=== PATIENT | female | born 1945 | race Caucasian/White ===

== ENCOUNTER 2023-03-15 10:04 | Inpatient (IN) | payer OTHER ==
--- OUTSIDE RECORDS SUMMARY | 2023-03-15 10:27 | XMS REPORT | Continuity of Care Document ---
:1945 Author Organization [facility] t Address [address] [facility] Efra[address]. [address] [place] [address] Care Team Providers Name Role Phone ZEESHAN NICHOLSON Primary Care Physician UnavailWILL Garner Attending Clinician Unavailable WILL DOSHI Attending Clinician Unavailable Will Doshi MD Attending Clinician Lab, Ang - Db Attending Clinician Unavailable SARA SANCHEZ Attending Clinician Unavailable Brent Ayon Attending Clinician Viky York Attending Clinician Marni Frazier Attending Clinician Peter Mayer Attending Clinician Raegan Lawler Attending Clinician Eze Calvert Admitting Clinician Marni Frazier Admitting Clinician Payers Payer Name Policy Type Policy Number Effective Date Expiration Date Immanuel suarez MEDICARE PART A [id number] 2011 \T\ B 00:00:00 MED[place]ID OF [place] [id number] 2022 00:00:00 Problems Condition Condition Condition Status Onset Resolution Last Treating Co mments Source Name Details Category Date Date Treatment Clinician Date SNAKE BITE SNAKE Diagnosis Active 2017-08-02 Memoria BITE 07-31 17:48:00 l Active 00:00: Malachi 07/31/2017 00 [facility] LLOYD LLOYD Diagnosis Active 2017-07-31 Memoria BILLING BILLING 07-31 06:45:00 l ONLY/LFLT# ONLY/LFLT# 00:00: Linden haskins [id number] Active 07/31/2017 [facility] TIA TIA Diagnosis Active 2017-06-22 Mem oria Active 06-21 10:00:00 l 06/21/2017 00:00: Sravan WHATLEY [address] [facility] TIA KE TIA KE Diagnosis Active 2017-06-22 M emoria Active 06-21 06:26:00 l 06/21/2017 00:00: Sravan [place] [facility] STROKE STROKE Diagnosis Active 2017-06-22 Me moria Active 06-21 04:25:00 l 06/21/2017 00:00: Sravan WHATLEY 00 [facility] MAYBE MAYBE Diagnosis Active 2017-06-21 Mem oria STROKE STROKE 06-21 23:10:00 l Active 00:00: Malachi 06/21/[address] [place] [address] Malachi E04.2 - E04.2 - Diagnosis Active 2016-01-23 Memoria NONTOXIC NONTOXIC 3-10 12:29:00 l MULTINODUL MULTINODUL 00:01: Linden MYLES GOYOGESH 00 Active 01/16/2016 OPID Leticia No known No known Disease Unive rs active active ity of problems problems [facility] Hypertensi Hypertens Problem Resolve 2019-01-02 Memoria ve melody d 15:33:01 l disorder, disorder, Herm lena systemic systemic arterial arterial (disorder) (disorder) Resolved Problem 01/02/2019 Medical Group,[facility], Leticia,M [place] TOXIC TOXIC Diagnosis Active 2017-08-02 Mem oria EFFECT OF EFFECT OF 17:48:00 l UNSP SNAKE UNSP SNAKE He rmann VENOM, VENOM, ACCIDE ACCIDE Active [facility] Allergies, Adverse Reactions, Alerts Allergy Allergy Status Severity Reaction(s) Onset Inactive Treating Comm ents Source Name Type Date Date Clinician NO KNOWN Drug Active Univers ALLERGIE Class ity of S [facility] Family History Family Member Diagnosis Comments Start Date Stop Date Source Natural brother Stroke [facility] Social History Social Habit Start Date Stop Date Quantity Comments Source Gender identity [facility] Exposure to 2022-03-06 2022-03-16 Not sure University of SARS-CoV-2 (event) 00:00:00 09:43:00 [facility] Tobacco use and 2022-03-16 2022-03-16 Never used Universit y of exposure 00:00:00 00:00:00 [facility] Alcohol intake 2021-03-01 2021-03-01 [facility] 00:00:00 00:00:00 non-drinker Hospital (finding) History of Social 2021-03-01 2021-03-[address] function 00:00:00 00:00:00 [facility] Social History 2017-07-31 2017-07-31 [facility] 20:53:13 20:53:13 Sex [birth year] [facility] 00:00:00 00:00:00 [facility] Smoking Status Start Date Stop Date Source [facility] Medications Ordered Filled Start Stop Current Ordering Indication Dosage Frequency Signature Comments Components Source Medication Medication Date Date Medication? Clinician (SIG) Name Name lisinopriL Yes 20mg Take 20 mg U nivers 20 mg -09 by mouth ity of tablet 10:11: daily. [address] Levothyroxi Yes Take by Uni vers ne 100 mcg 5-09 mouth. ity of capsule 10:11: [address] lisinopriL Yes 20mg Take 20 mg U nivers 20 mg 5-09 by mouth ity of tablet 10:11: daily. [address] Levothyroxi Yes Take by Uni vers ne 100 mcg 5-09 mouth. ity of capsule 10:11: [address] Cholestyram Yes = 1 Pack, M emoria ine Resin 7-25 PO, BID, # l 66.7 MG/ML 21:39: 60 ea, 6 Her gold Oral 00 Refill(s), Suspension Pharmacy: [[facility]] [facility] [address] budesonide No 9 mg = 3 Mem oria 3 mg oral 7-17 cap, PO, l delayed 15:51: QAM, X 30 Marcela nn release 00 day, # 90 capsule cap, 0 Refill(s), Pharmacy: [facility] [address]855 tramadol Yes See Memoria hydrochlori 08-01 Instructio l de 50 MG 16:20: ns, PRN Sravan n Oral Tablet 00 Pain Score 6-10, 1 tab PO Q4H or 2 tabs PO Q6, # 30 tab, 0 Refill(s) Lisinopril No Notes: Memor ia 08-01 (Same as: l 14:00: Prinivil, Malachi 00 Zestril) aspirin 81 No Notes: Do Me moria mg tablet, 08-01 not crush l enteric 14:00: or chew. Sravan n coated 00 (Same As: Ecotrin) Thyroxine No Notes: Memori a 08-01 Take 1 l 02:00: hour [place] 00 before or 2 hours after meal; Enteral feeds may interefere with the absorption of this medication . (Same as:Levothr oid, Synthroid) Amlodipine No Notes: Memor ia 07-31 (Same as: l 22:56: Norvasc) Malachi 00 lisinopril Yes 20 mg = 1 Me moria 20 mg oral 07-31 tab, PO, l tablet 19:27: Daily, 0 [place] 00 Refill(s) Amlodipine Yes 5 mg, PO, Me moria 07-31 Daily, 0 l 19:27: Refill(s) Acetaminoph No Notes: Do M emoria en 07-31 not exceed l 19:26: 4 gm/day. (Same as: Tylenol) Ondansetron No Notes: Carrillo ana luisa 07-31 (Same as: l 19:26: Zofran) MEDICATION WASTE Product Size: 4 mg Product Wasted: ___ mg Tramadol No Notes: Not Mem oria 07-31 to exceed l 19:25: 400mg/day. (Same As: Ultram) Acetaminoph No 1 tab, Carrillo ana luisa en 325 MG / 07-31 Route: PO, l Hydrocodone 18:40: Drug Form: [place] Bitartrate 00 TAB, 10 MG Oral Dosing Tablet Weight [[place] 70.455, 10/325] kg, ONCE, STAT, Start date: 07/31/17 13:40:00 CDT, Stop date: 07/31/17 13:40:00 CDT Fentanyl No 50 Memoria 07-31 microgram, l 15:00: Route: IVP, ONCE, Dosing Weight 70.455, kg, Priority: STAT, Start date: 07/31/17 10:00:00 CDT, Stop date: 07/31/17 10:00:00 CDT sodium No 1,000 mL, Memori a chloride 07-31 Rate: 75 l 0.9% 1000 14:47: ml/hr, Sravan n ml INJ 00 Infuse 1,000 mL over: 13.3 hr, Route: IV, Dosing Weight 70.455 kg, Total Volume: 1,000, Priority: STAT, Start date: 07/31/17 9:47:00 CDT, Duration: 1 doses or times, Stop date: 07/31/17 23:04:00 CDT Saline No Notes: Memoria Flush 0.9% 9-23 (Same as: l 13:25: BD Posiflush) DME Yes 1 ea, Memoria Addition #1 8-16 MISC, l 11:54: Q-M-W-F, [place] 00 Speech Therapy - Cognitive Therapy, 3 X/week for 4 weeks, # 1 ea, 0 Refill(s) aspirin 81 Yes 81 mg = 1 Me moria mg tablet, 8-16 tab, PO, l enteric 11:49: Daily, # Sravan n coated 00 90 tab, 3 Refill(s), Pharmacy: [facility] [id number] atorvastati No Notes: Carrillo ana luisa n 8-16 (Same As: l 02:00: Lipitor) [place] Tylenol No Notes: Do Memor ia 8-15 not exceed l 18:53: 4 gm/day. Malachi 00 (Same as: Tylenol) Thyroxine No Notes: Memori a 8-15 Take 1 l 16:08: hour [place] 00 before or 2 hours after meal; Enteral feeds may interefere with the absorption of this medication . (Same as:Levothr oid, Synthroid) Docusate No Notes: Memoria 8-15 (Same as: l 14:00: Colace) Malachi 00 (Do Not Crush) Aspirin 325 No Notes: (Do Memoria MG Enteric 8-15 Not Crush) l Coated 14:00: Do not Malachi Tablet 00 crush or chew. Streptococc No Notes: Carrillo ana luisa us 8-15 Shake well l pneumoniae 14:00: prior to Her gold serotype 1 00 use (Same capsular as: antigen Prevnar diphtheria 13) [id number] protein conjugate vaccine / Streptococc us pneumoniae serotype 14 capsular antigen diphtheria [id number] protein conjugate vaccine / Streptococc us pneumoniae serotype 18C capsular antigen d Saline No Notes: Memoria Flush 0.9% 8-15 (Same as: l 14:00: BD Malachi 00 Posiflush) heparin No Notes: Memoria 8-15 porcine l 13:00: heparin [place] levothyroxi Yes 100 Memori a ne 100 mcg 8-15 microgram l (0.1 mg) 11:11: = 1 tab, Marcela nn oral tablet 00 PO, Bedtime, # 30 tab, 0 Refill(s) Ondansetron No Notes: Carrillo ana luisa 8-15 (Same as: l 09:18: Zofran) MEDICATION WASTE Product Size: 4 mg Product Wasted: ___ mg Saline No Notes: Memoria Flush 0.9% 06-22 (Same as: l 09:18: BD [place] 00 Posiflush) Potassium No Notes: Memori a Chloride 06-22 (Same as: l 1.33 MEQ/ML 07:17: Potassium H ermann Oral Chloride) Solution Aspirin No 324 mg, Memoria 8 Route: l 06:25: CHEW, Drug form: CHEWTAB, ONCE, Dosing Weight 70.455, kg, Priority: STAT, Start date: 06/22/17 1:25:00 CDT, Stop date: 06/22/17 1:25:00 CDT NS (Bolus) No 500 mL, Carrillo ana luisa IV 06-22 500 ml/hr, l 05:56: Infuse Over: 1 hr, Route: IV, 500, Drug form: INJ, ONCE, Priority: STAT, Dosing Weight 70.455 kg, Start date: 06/22/17 0:56:00 CDT, Duration: 1 doses or times, Stop date: 06/22/17 0:56:00 CDT Benadryl No Notes: Memoria 8-15 (Same as: l 05:56: Benadryl) Reglan No Notes: Memoria 8-15 (Same as: l 05:55: Reglan) Immunizations Ordered Immunization Filled Immunization Date Status Commen ts Source Name Name pneumococcal 2017-06-23 Completed Memorial 13-valent vaccine 13:05:00 [place] Vital Signs Vital Name Observation Time Observation Value Comments Source Systolic blood 2022-03-16 15:12:00 125 mm[Hg] Univer sity [facility] Diastolic blood 2022-03-16 15:12:00 80 mm[Hg] Unive rsity [facility] Body height 2022-03-16 15:12:00 162.6 cm [facility] Body weight 2022-03-16 15:12:00 71.668 kg [facility] BMI 2022-03-16 15:12:00 27.12 kg/m2 [facility] Oxygen saturation in 2022-03-16 15:12:00 98 /min [facility] Arterial blood by [facility] Pulse oximetry Branch BMI Calculated 2018-05-24 15:31:00 Memori al Malachi Weight 2018-05-24 15:31:00 Memorial Malachi Heart Rate 2018-05-24 15:31:00 [facility] [place] Systolic (mm Hg) 2018-05-24 15:31:00 Carrillo rial Malachi Diastolic (mm Hg) 2018-05-24 15:31:00 Mem orial Malachi Height 2018-05-24 15:31:00 162.56 cm [facility] [place] Systolic (mm Hg) 2017-08-01 12:31:00 Carrillo rial Malachi Diastolic (mm Hg) 2017-08-01 12:31:00 Mem orial [place] Respitory Rate 2017-08-01 12:31:00 Memori al [place] Temperature Oral (F) 2017-08-01 12:31:00 96.8 F [facility] [place] Heart Rate 2017-08-01 12:31:00 Memorial Malachi Respitory Rate 2017-08-01 07:55:00 Memori al [place] Temperature Oral (F) 2017-08-01 07:55:00 98.4 F [facility] Malachi Heart Rate 2017-08-01 07:55:00 [facility] [place] Systolic (mm Hg) 2017-08-01 07:55:00 Carrillo rial Malachi Diastolic (mm Hg) 2017-08-01 07:55:00 Mem orial Malachi Temperature Oral (F) 2017-08-01 04:48:00 97.2 F [facility] [place] Systolic (mm Hg) 2017-08-01 04:48:00 Carrillo rial [place] Diastolic (mm Hg) 2017-08-01 04:48:00 Mem orial Malachi Respitory Rate 2017-08-01 04:48:00 Memori al [place] Heart Rate 2017-08-01 04:48:00 [facility] [place] Height 2017-07-31 19:40:00 162 cm [facility] Malachi Weight 2017-07-31 19:40:00 [facility] Malachi BMI Calculated 2017-07-31 19:40:00 Memori al Malachi BMI Calculated 2017-07-31 11:49:00 Memori al Malachi Height 2017-07-31 11:49:00 162.56 cm [facility] [place] Weight 2017-07-31 11:49:00 [facility] [place] Temperature Oral (F) 2017-06-23 08:53:00 98.0 F [facility] Malachi Heart Rate 2017-06-23 08:53:00 Memorial Malachi Systolic (mm Hg) 2017-06-23 08:53:00 Carrillo rial Malachi Diastolic (mm Hg) 2017-06-23 08:53:00 Mem orial [place] Respitory Rate 2017-06-23 08:53:00 Memori al Mal[place] Heart Rate 2017-06-23 05:00:00 Memorial Malachi Temperature Oral (F) 2017-06-23 05:00:00 98.1 F Memorial Malachi Systolic (mm Hg) 2017-06-23 05:00:00 Carrillo rial [place] Diastolic (mm Hg) 2017-06-23 05:00:00 Mem orial [place] Respitory Rate 2017-06-23 05:00:00 Memori al [place] Temperature Oral (F) 2017-06-23 00:47:00 98.4 F Memorial Malachi Systolic (mm Hg) 2017-06-23 00:47:00 Carrillo rial [place] Diastolic (mm Hg) 2017-06-23 00:47:00 Mem orial [place] Respitory Rate 2017-06-23 00:47:00 Memori al Malachi Heart Rate 2017-06-23 00:47:00 Memorial Malachi Weight 2017-06-22 09:37:00 [facility] [place] BMI Calculated 2017-06-22 09:37:00 Memori al Malachi Height 2017-06-22 09:37:00 162.56 cm [facility] [place] Temperature Oral (F) 2017-06-22 08:18:00 98.4 F [facility] [place] Heart Rate 2017-06-22 08:18:00 [facility] [place] Systolic (mm Hg) 2017-06-22 08:18:00 Carrillo rial [place] Diastolic (mm Hg) 2017-06-22 08:18:00 Mem orial Malachi Respitory Rate 2017-06-22 08:18:00 Memori al Malachi Temperature Oral (F) 2017-06-22 07:51:00 97.9 F [facility] [place] Heart Rate 2017-06-22 07:51:00 Memorial Malachi Respitory Rate 2017-06-22 07:51:00 Memori al Malachi Systolic (mm Hg) 2017-06-22 07:51:00 Carrillo rial Malachi Diastolic (mm Hg) 2017-06-22 07:51:00 Mem orial [place] Respitory Rate 2017-06-22 06:24:00 Memori al [place] Heart Rate 2017-06-22 06:24:00 [facility] [place] Temperature Oral (F) 2017-06-22 06:24:00 98.5 F [facility] [place] Systolic (mm Hg) 2017-06-22 06:24:00 Carrillo rial Malachi Diastolic (mm Hg) 2017-06-22 06:24:00 Mem orial [place] Weight 2017-06-22 02:02:00 [facility] Malachi Procedures Procedure Date / Time Performed Performing Clinician Sour e Colon [facility] Malachi Hernia [facility] Malachi Hysterectomy [facility] Malachi Plan of Care Planned Activity Planned Date Details Comments Source Future Scheduled 2023-02-11 COVID-19 VACCINE (#1) [facility] Test 14:51:53 [code = COVID-19 VACCINE (#1)] Future Scheduled 2023-02-11 Hepatitis C screening [facility] Test 14:51:53 (procedure) [code = 542796337] Future Scheduled 2023-02-11 COLONOSCOPY SCREENING [facility] Test 14:51:53 [code = COLONOSCOPY SCREENING] Future Scheduled 2023-02-11 SHINGLES VACCINES ([address] [facility] Test 14:51:53 of 2) [code = SHINGLES VACCINES (1 of 2)] Future Scheduled 2023-02-11 65[facility] [facility] Test 14:51:53 VACCINE (2 - PPSV23 if available, else PCV20) [code = 65+ PNEUMOCOCCAL VACCINE (2 - PPSV23 if available, else PCV20)] Future Scheduled 2023-02-11 INFLUENZA VACCINE [facility] Test 14:51:53 [code = INFLUENZA VACCINE] Encounters Start End Encounter Admission Attending Care Care Encounter Source Date/Time Date/Time Type Type Clinicians Facility Department ID 2022-04-08 2022-04-08 Outpatient WILL LEES [facility] [id number] Univers 00:00:00 00:00:00 WILL DOSHI [facility] 2022-03-31 2022-03-31 Telephone Glenda [facility] [id number] Univers 00:00:00 00:00:00 [facility] [id number] ity of [place] [id number] Yoni as ERNESTO?BLEA [id number] [facility] [address] [place] [address] OFFICE [facility] 2022-03-16 2022-03-16 Hospital Television Rental Clerk Lab, Ang - Db [facility] [id number] Univers 11:15:00 11:30:00 Visit Will Doshi [facility] [id number] 10 ity of [place] [id number] Yoni as ERNESTO?BLEA [id number] De lainey [facility] [address] [facility] OFFICE [facility] 2022-03-16 2022-03-16 Outpatient WILL LEES [facility] [id number] Univers 11:15:00 11:15:00 WILL DOSHI ronal [facility] 2022-03-16 2022-03-16 Office Glenda [facility] [id number] Univers 10:00:00 11:02:19 Visit [facility] [id number] [facility] [id number] Yoni as ERNESTO?BLEA [id number] [facility] [address] 2022-03-16 2022-03-16 Outpatient WILL LEES [facility] [id number] Univers 10:00:00 11:02:19 WILL DOSHI ronal [facility] 2021-03-01 2021-03-01 Emergency [facility] [id number] [place] 00:00:00 00:00:00 SARA [address]Lisseth [facility] 2018-06-14 2018-06-16 Outside nullFlavo [facility] [id number] Memoria 19:28:00 04:59:59 Medical r Gastroenter 00 l Records ology Sugar Herm lena Land 2018-06-14 2018-06-15 Outpatient [facility] [id number] 14:28:00 23:59:59 00 2018-05-24 2018-05-25 Outpatient nullFlavo [facility] [id number] Memoria 15:00:00 04:59:59 r Gastroenter 02 l brown [facility] 2018-05-24 2018-05-24 Outpatient Gabo, MHMG MG [id number] 10:00:00 23:59:59 Nadim Tyler 02 2018-05-24 2018-05-24 Outpatient MHIE IE [id number] Memoria 10:00:00 10:00:00 02 [facility] 2017-07-31 2017-08-01 Observatio nullFlavo [facility] [id number] Memoria 11:38:00 17:02:00 n r Malachi 67 [facility] 2017-07-31 2017-08-01 Outpatient Chela [facility] [id number] 06:38:00 12:02:00 Viky Charles 2017-06-22 2017-06-23 Observatio nullFlavo [facility] [id number] Memoria 09:06:00 13:35:00 n Malachi 27 [facility] 2017-06-22 2017-06-23 Outpatient Karin, MHSE MHSE [id number] 04:06:00 08:35:00 Marni Grimes 2017-06-22 2017-06-22 Emergency nullFlavo [facility] [id number] Memoria 02:01:00 08:49:00 r Malachi [facility] 2017-06-21 2017-06-22 Outpatient Mayer, MHPL PL [id number] 21:01:00 03:49:00 Peter Cm 2017-04-14 2017-04-14 Outpatient MHIE IE [id number] Memoria 11:10:00 11:10:00 01 [facility] 2016-01-23 2016-01-24 Outpt Diag nullFlavo [facility] [id number] Memoria 17:20:00 04:59:00 Services r Outpatient 00 [facility] 2016-01-23 2016-01-23 Outpatient Bucky, MHOIP MHOIP [id number] 12:20:00 23:59:00 Raegan Amezquita 2015-10-01 2015-10-01 Outpatient nullFlavo [facility] [id number] Memoria 13:27:52 13:27:52 дмитрий Ly 2014-02-07 2014-02-07 Outpatient nullFlavo [facility] [id number] Memoria 14:23:48 14:23:48 дмитрий Ly Results Test Description Test Time Test Comments Results Result Comments Source CARDIAC ENZYMES 2017-08-01 07:40:00 Test Item Value Reference Range Interpretation Comme nts Total CK (test code = Total CK) 60 12-191 [id number] 07:40:00 Test Item Value Reference Range Interpretation Comments Magnesium Lvl (test code = Magnesium 2.1 1.8-2.4 Lvl) [id number] 07:40:00 Test Item Value Reference Range Interpretation Comments AGAP (test code = AGAP) 13.8 10.0-20.0 [facility]ewkriIBPTXIGMWOFP3048-46-09 07:40:00 Test Item Value Reference Range Interpretation Comments eGFR (test code = eGFR) 77 [facility][id number] 07:40:00 Test Item Value Reference Range Interpretation Comments CO2 (test code = CO2) 22 24-32 [facility]TosywzjQWPYYRZXKJDR1558-56-34 07:40:00 Test Item Value Reference Range Interpretation Comments BUN (test code = BUN) 16 7-22 [facility]GnjqfwpJZMRNYAQTYIH9644-57-16 07:40:00 Test Item Value Reference Range Interpretation Comments Creatinine Lvl (test code = Creatinine 0.79 0.50-1.40 Lvl) [facility]wghwlTIBTTQKEIWAA9428-39-13 07:40:00 Test Item Value Reference Range Interpretation Comments Calcium Lvl (test code = Calcium Lvl) 7.7 8.5-10.5 [facility] HospitalYviacwiSGKXEKUHSIPN9658-18-56 07:40:00 Test Item Value Reference Range Interpretation Comments Sodium Lvl (test code = Sodium Lvl) 141 135-145 [facility] HospitalCkqnondVYHWWJLFGAHI8335-92-92 07:40:00 Test Item Value Reference Range Interpretation Comments Potassium Lvl (test code = Potassium 3.8 3.5-5.1 Lvl) [facility] HospitalZopcvfuVHNSFWBBTOPH0633-92-58 07:40:00 Test Item Value Reference Range Interpretation Comments Chloride Lvl (test code = Chloride Lvl) 109 95-109 [facility] HospitalHkl[id number] 07:40:00 Test Item Value Reference Range Interpretation Comments Glucose Lvl (test code = Glucose Lvl) 99 70-99 [facility]AMUJC7999-51-84 07:40:00 Test Item Value Reference Range Interpretation Comments Platelet (test code = Platelet) 185 133-450 [id number] 07:40:00 Test Item Value Reference Range Interpretation Comments MCHC (test code = MCHC) 35.4 32.0-36.0 [facility]leAdariilYZWHJYPRPW5824-85-01 07:40:00 Test Item Value Reference Range Interpretation Comments MCH (test code = MCH) 32.4 pg 27.0-31.0 [facility]leKigfrcpIAZTQGQBLM2469-58-85 07:40:00 Test Item Value Reference Range Interpretation Comments RDW (test code = RDW) 14.6 11.5-14.5 [facility][id number] 07:40:00 Test Item Value Reference Range Interpretation Comments Hct (test code = Hct) 36.8 36.0-48.0 [facility]leXwauebwZJCZGYPYYX2587-15-15 07:40:00 Test Item Value Reference Range Interpretation Comments MCV (test code = MCV) 91.4 80.0-98.0 [id number] 07:40:00 Test Item Value Reference Range Interpretation Comments RBC (test code = RBC) 4.02 4.20-5.40 [id number] 07:40:00 Test Item Value Reference Range Interpretation Comments WBC (test code = WBC) 9.8 3.7-10.4 [id number] 07:40:00 Test Item Value Reference Range Interpretation Comments Hgb (test code = Hgb) 13.0 12.0-16.0 [id number] 07:40:00 Test Item Value Reference Range Interpretation Comments MPV (test code = MPV) 7.9 7.4-10.4 [facility][id number] 07:40:00 Test Item Value Reference Range Interpretation Comments Eosinophils # (test code 0.1 See_Comment [A utomated message] The = Eosinophils #) system [facility] generated this result tra nsmitted reference range : <=0.5. The reference r aubrey was not used to int erpret this result as normal/abnormal . [facility] [id number] 07:40:00 Test Item Value Reference Range Interpretation Comments Lymphocytes # (test code = Lymphocytes 1.3 1.0-5.5 #) [facility] [id number] 07:40:00 Test Item Value Reference Range Interpretation Comments Segs-Bands # (test code = Segs-Bands #) 7.7 1.5-8.1 [facility] AzleBnvrefyMZVYIBENQN2848-27-01 07:40:00 Test Item Value Reference Range Interpretation Comments Monocytes # (test code 0.7 See_Comment [Aut omated message] The = Monocytes #) system which generated this result tra nsmitted reference range : <=0.8. The reference r aubrey was not used to int erpret this result as normal/abnormal . [facility] Az[id number] 07:40:00 Test Item Value Reference Range Interpretation Comments Eosinophils (test code = 0.7 See_Comment [A utomated message] The Eosinophils) system which ge nerated this result tra nsmitted reference range : <=4.0. The reference r aubrey was not used to int erpret this result as normal/abnormal . [facility] A[id number] 07:40:00 Test Item Value Reference Range Interpretation Comments Segs (test code = Segs) 78.8 45.0-75.0 [facility] [id number] 07:40:00 Test Item Value Reference Range Interpretation Comments Basophils (test code = 0.3 See_Comment [Aut omated message] The Basophils) system which ge nerated this result tra nsmitted reference range : <=1.0. The reference r aubrey was not used to int erpret this result as normal/abnormal . [facility]leYgqlhziQKCNJOIYDL3088-22-92 07:40:00 Test Item Value Reference Range Interpretation Comments Lymphocytes (test code = Lymphocytes) 12.9 20.0-40.0 [facility]leBssyqvnDMLNTOJDMH4164-01-33 07:40:00 Test Item Value Reference Range Interpretation Comments Monocytes (test code = Monocytes) 7.3 2.0-12.0 [facility] AzleVwyzddyFNQCQNRFGZ2947-35-53 07:40:00 Test Item Value Reference Range Interpretation Comments PTT (test code = PTT) 26.3 s 22.9-35.8 [facility]hhdqBZSDJGNKUD0497-33-50 07:40:00 Test Item Value Reference Range Interpretation Comments PT (test code = PT) 14.5 s 12.0-14.7 [facility]AgujzdtRUTJVELAEZ0755-24-15 07:40:00 Test Item Value Reference Range Interpretation Comments INR (test code = INR) 1.11 0.85-1.17 [facility]JttqjxyAOIVRBUJMD6377-74-64 07:40:00 Test Item Value Reference Range Interpretation Comments Fibrinogen Lvl (test code = Fibrinogen 246 230-510 Lvl) [facility] HospitalVhlmkvsAOAJJAWDDF3921-71-79 07:40:00 Test Item Value Reference Range Interpretation Comments FSP (test code = FSP) >=5 <20 ug/ml [facility] AzleKozmvowOOUNCYVVDT5485-59-98 23:11:00 Test Item Value Reference Range Interpretation Comments PT (test code = PT) 14.6 s 12.0-14.7 [facility] HospitalMtuaqadNTZDRMHDMK8000-60-86 23:11:00 Test Item Value Reference Range Interpretation Comments PTT (test code = PTT) 26.5 s 22.9-35.8 [facility] HospitalUiraxakOFEEIRLVIY7820-22-55 23:11:00 Test Item Value Reference Range Interpretation Comments INR (test code = INR) 1.12 0.85-1.17 [facility] LTFQLUL4825-87-96 23:11:00 Test Item Value Reference Range Interpretation Comments Total CK (test code = Total CK) 79 12-191 [facility] HospitalZcieehfCWFEOLTGSS1881-68-23 23:11:00 Test Item Value Reference Range Interpretation Comments Fibrinogen Lvl (test code = Fibrinogen 262 230-510 Lvl) [facility] AzleWcegkheRHTLIQLDMS3967-15-17 23:11:00 Test Item Value Reference Range Interpretation Comments FSP (test code = FSP) >=20 ug/ml [facility] AITMGXW0747-02-65 16:11:00 Test Item Value Reference Range Interpretation Comments ABO/Rh (test code = ABO/Rh) O POS [facility] [employer] IZBSPKE6415-75-14 16:11:00 Test Item Value Reference Range Interpretation Comments Antibody Scrn (test Negative (07/31/17 code = Antibody Scrn) 11:11 AM) [facility]FclqnblFBUBPRONNNZZ3847-14-02 16:11:00 Test Item Value Reference Range Interpretation Comments Chloride Lvl (test code = Chloride Lvl) 108 95-109 [facility] HospitalEtizhnuOIWLBUSFDFJC7539-72-94 16:11:00 Test Item Value Reference Range Interpretation Comments Potassium Lvl (test code = Potassium 3.8 3.5-5.1 Lvl) [facility] HospitalEheluahNDIFOOZCITLT0600-28-17 16:11:00 Test Item Value Reference Range Interpretation Comments Calcium Lvl (test code = Calcium Lvl) 8.5 8.5-10.5 [facility] HospitalUslqipeTJCDJUKKRVJX3626-10-03 16:11:00 Test Item Value Reference Range Interpretation Comments CO2 (test code = CO2) 24 24-32 [facility] HospitalAiqtykmMDUJWNICBOYO3286-25-84 16:11:00 Test Item Value Reference Range Interpretation Comments Sodium Lvl (test code = Sodium Lvl) 140 135-145 [facility] HospitalZunqygiAXVHXMVJQFUR8694-36-28 16:11:00 Test Item Value Reference Range Interpretation Comments eGFR (test code = eGFR) 72 [facility] HospitalQoykgltOBZQLDWLCZSH1695-84-07 16:11:00 Test Item Value Reference Range Interpretation Comments BUN (test code = BUN) 14 7-22 [facility] HospitalJqpcrlqPOEPHOKRMUJH6504-07-36 16:11:00 Test Item Value Reference Range Interpretation Comments Glucose Lvl (test code = Glucose Lvl) 137 70-99 [facility] HospitalWnwgxsnPJQYTQVCJUGT2406-62-51 16:11:00 Test Item Value Reference Range Interpretation Comments Creatinine Lvl (test code = Creatinine 0.83 0.50-1.40 Lvl) [facility] HospitalJlzgrszBDCLPEAWPLOL3403-02-57 16:11:00 Test Item Value Reference Range Interpretation Comments AGAP (test code = AGAP) 11.8 10.0-20.0 [facility] AzleJzidbgaHFSFXOJSZO6615-22-60 16:11:00 Test Item Value Reference Range Interpretation Comments Fibrinogen Lvl (test code = Fibrinogen 291 230-510 Lvl) [facility] AzleVepffxdFXFMCJKEGM7145-68-02 16:11:00 Test Item Value Reference Range Interpretation Comments INR (test code = INR) 1.00 0.85-1.17 [facility] AzleZvzjvxgJJMOMVNGKQ4875-30-67 16:11:00 Test Item Value Reference Range Interpretation Comments PT (test code = PT) 13.4 s 12.0-14.7 [facility] AzleLjwjyymUWDHBDCRWO9428-73-04 16:11:00 Test Item Value Reference Range Interpretation Comments PTT (test code = PTT) 28.6 s 22.9-35.8 [facility] AzleCmmvycgXQNTVXVDPG4861-02-20 16:11:00 Test Item Value Reference Range Interpretation Comments Hgb (test code = Hgb) 13.7 12.0-16.0 [facility] AzleElnpxrmHVHQFNBBOD6344-39-42 16:11:00 Test Item Value Reference Range Interpretation Comments MCV (test code = MCV) 93.6 80.0-98.0 [facility] AzleTwzbdzjIKUJGLEYVP4112-00-62 16:11:00 Test Item Value Reference Range Interpretation Comments Hct (test code = Hct) 41.4 36.0-48.0 [facility] AzleRncfpucHLQDGKHPRH5448-41-99 16:11:00 Test Item Value Reference Range Interpretation Comments MCHC (test code = MCHC) 33.1 32.0-36.0 [facility] AzleIosmvrlSQZROSFUEM2286-20-42 16:11:00 Test Item Value Reference Range Interpretation Comments MCH (test code = MCH) 31.0 pg 27.0-31.0 [facility] AzleGupssgkJBLUTLTPRH2931-95-85 16:11:00 Test Item Value Reference Range Interpretation Comments RDW (test code = RDW) 14.6 11.5-14.5 [facility] AzleKpmqjqyPWZRMNRKKT5990-45-45 16:11:00 Test Item Value Reference Range Interpretation Comments RBC (test code = RBC) 4.42 4.20-5.40 [facility] AzleThzshzbHESCIOPWSU0687-60-30 16:11:00 Test Item Value Reference Range Interpretation Comments WBC (test code = WBC) 6.2 3.7-10.4 [facility] AzleAjoajbyUMEOLUVGKR8600-21-42 16:11:00 Test Item Value Reference Range Interpretation Comments MPV (test code = MPV) 7.7 7.4-10.4 [facility] AzlePnjlvvsTFDXXGUBCP7555-44-86 16:11:00 Test Item Value Reference Range Interpretation Comments Platelet (test code = Platelet) 178 133-450 [facility] AzleAlxiponCPKZEMIINM6739-99-24 16:11:00 Test Item Value Reference Range Interpretation Comments G-value Rapid (test code = G-value 8.4 5.0-11.6 Rapid) [facility] AzleTjmyozeUOWRWLCTOB4014-67-91 16:11:00 Test Item Value Reference Range Interpretation Comments Split Point Rapid (test code = Split 0.4 min Point Rapid) [facility] AzleScamaduJSFRJNNQDF7646-35-03 16:11:00 Test Item Value Reference Range Interpretation Comments Angle Rapid (test code = Angle 76 degrees 64-80 Rapid) [facility] AzleNbnqrmqEFBGXRZSFU5738-29-84 16:11:00 Test Item Value Reference Range Interpretation Comments Max Amplitude Rapid (test code = Max 63 mm 52-71 Amplitude Rapid) [facility] AzleUdedesiNGZQPHGVYW7584-86-77 16:11:00 Test Item Value Reference Range Interpretation Comments ACT (TEG) Rapid (test code = ACT (TEG) 97 s 86-118 Rapid) [facility] AzleVngnjpyRFURGCAPFY9663-47-01 16:11:00 Test Item Value Reference Range Interpretation Comments R-time Rapid (test code = R-time 0.5 min 0.4-0.7 Rapid) [facility] AzleJbttnwlTMJAAFGCXC0550-78-73 16:11:00 Test Item Value Reference Range Interpretation Comments K-time Rapid (test code = K-time 1.3 min 0.6-2.3 Rapid) [facility] AzleWspyxelWZTQEXNGGT8701-62-32 16:11:00 Test Item Value Reference Range Interpretation Comments Estimated % Lysis Rapid 0.2 See_Comment [Au tomated message] The (test code = Estimated syste m which generated % Lysis Rapid) this result t ransmitted reference range : <=7.5. The reference r aubrey was not used to int erpret this result as normal/abnormal . [facility] AzleZxdwncdKTLWVSKUHQ3289-27-53 16:11:00 Test Item Value Reference Range Interpretation Comments Segs (test code = Segs) 91.3 45.0-75.0 [facility] AzleLdotmgzKMZZOOSHBL1469-72-13 16:11:00 Test Item Value Reference Range Interpretation Comments Lymphocytes (test code = Lymphocytes) 7.2 20.0-40.0 [facility] AzleUvzdhznEUFJGLYWOB3353-41-59 16:11:00 Test Item Value Reference Range Interpretation Comments Monocytes (test code = Monocytes) 1.4 2.0-12.0 [facility] AzleEkjxoosNGFGKOJHUO7908-95-58 16:11:00 Test Item Value Reference Range Interpretation Comments Segs-Bands # (test code = Segs-Bands #) 5.7 1.5-8.1 [facility] AzleAqeqqbsLGIYYQORTM3956-51-01 16:11:00 Test Item Value Reference Range Interpretation Comments Basophils (test code = 0.1 See_Comment [Aut omated message] The Basophils) system which ge nerated this result tra nsmitted reference range : <=1.0. The reference r aubrey was not used to int erpret this result as normal/abnormal . [facility] AzleNulfuywFDWIDPKONR1909-51-24 16:11:00 Test Item Value Reference Range Interpretation Comments Lymphocytes # (test code = Lymphocytes 0.5 1.0-5.5 #) [facility] AzlePbftepdCHYKFRQKUZ5192-21-49 16:11:00 Test Item Value Reference Range Interpretation Comments Monocytes # (test code 0.1 See_Comment [Aut omated message] The = Monocytes #) system which generated this result tra nsmitted reference range : <=0.8. The reference r aubrey was not used to int erpret this result as normal/abnormal . [facility] HospitalNmvecciHXKJRAUCOJSI2326-85-95 09:23:00 Test Item Value Reference Range Interpretation Comments Potassium Lvl (test code = Potassium 3.8 3.5-5.1 Lvl) [facility] HospitalSqsmatoMJKQPDLJUZNY5169-16-44 09:23:00 Test Item Value Reference Range Interpretation Comments Sodium Lvl (test code = Sodium Lvl) 141 135-145 [facility] HospitalBumoeuiBTEGQOPSKDFZ2654-08-15 09:23:00 Test Item Value Reference Range Interpretation Comments Creatinine Lvl (test code = Creatinine 0.72 0.50-1.40 Lvl) [facility] HospitalGdatdloPLJJZXQDAHAP2215-24-69 09:23:00 Test Item Value Reference Range Interpretation Comments BUN (test code = BUN) 12 7-22 [facility] HospitalWdihsgkKYEEYUNOJIMQ8206-33-92 09:23:00 Test Item Value Reference Range Interpretation Comments Glucose Lvl (test code = Glucose Lvl) 83 70-99 [facility] HospitalIhxjocbXDEQRQAXAZZM8519-20-37 09:23:00 Test Item Value Reference Range Interpretation Comments Albumin Lvl (test code = Albumin Lvl) 3.2 3.5-5.0 [facility] HospitalTluqlczCERTQMZJOQKC7076-97-20 09:23:00 Test Item Value Reference Range Interpretation Comments Total Protein (test code = Total 6.5 6.4-8.4 Protein) [facility] HospitalXnsaivpFZSIOIIPXRBG5812-28-48 09:23:00 Test Item Value Reference Range Interpretation Comments Calcium Lvl (test code = Calcium Lvl) 8.2 8.5-10.5 [facility] HospitalIedhpesJNGHQHIWXZUW0358-48-54 09:23:00 Test Item Value Reference Range Interpretation Comments CO2 (test code = CO2) 27 24-32 [facility] HospitalMzocnhnJCAKAAABMZRH4054-80-54 09:23:00 Test Item Value Reference Range Interpretation Comments Chloride Lvl (test code = Chloride Lvl) 107 95-109 [facility] HospitalMurradnKGYDBESAFVHN0978-94-06 09:23:00 Test Item Value Reference Range Interpretation Comments AST (test code = AST) 12 See_Comment [Auto mated message] The system which ge nerated this result transmit saeid reference range : <=37. The reference range was not used to interpr et this result as rosi l/abnormal. [facility] HospitalHyxhpmkBAIVXHLQEYFH1176-68-24 09:23:00 Test Item Value Reference Range Interpretation Comments ALT (test code = ALT) 16 See_Comment [Auto mated message] The system which ge nerated this result transmit saeid reference range : <=65. The reference range was not used to interpr et this result as rsoi l/abnormal. [facility] HospitalJoljpqnZHBZXUUCALWZ5110-76-69 09:23:00 Test Item Value Reference Range Interpretation Comments Bili Total (test code = Bili Total) 0.5 0.2-1.3 [facility] HospitalGteqkbtWRJIHBSZHHVN8385-76-95 09:23:00 Test Item Value Reference Range Interpretation Comments Alk Phos (test code = Alk Phos) 73 39-136 [facility] HospitalKoancviUYMDHRCBBQXD5080-45-38 09:23:00 Test Item Value Reference Range Interpretation Comments eGFR (test code = eGFR) 85 [facility] HospitalXckrxfmMWVDXYFUHTFY8918-03-37 09:23:00 Test Item Value Reference Range Interpretation Comments A/G Ratio (test code = A/G Ratio) 1.0 0.7-1.6 [facility] HospitalPgyuxnuZKHFOLDVNZBK9184-89-04 09:23:00 Test Item Value Reference Range Interpretation Comments Globulin (test code = Globulin) 3.3 2.7-4.2 [facility] HospitalOnwrwcsSRBWWXJDDODW1446-38-80 09:23:00 Test Item Value Reference Range Interpretation Comments B/C Ratio (test code = B/C Ratio) 17 6-25 [facility] DallasXumbiqzHBVUDDOBCSWU3889-48-14 09:23:00 Test Item Value Reference Range Interpretation Comments AGAP (test code = AGAP) 10.8 10.0-20.0 [facility] AzleWulxfetYCISUYDPDQ1113-08-46 09:23:00 Test Item Value Reference Range Interpretation Comments Segs (test code = Segs) 55.5 45.0-75.0 [facility] AzleMdnpolxIUJIPWEIWH9086-42-64 09:23:00 Test Item Value Reference Range Interpretation Comments Lymphocytes (test code = Lymphocytes) 30.0 20.0-40.0 [facility] AzleEqjwsbsQNUXMXQAKP1043-94-94 09:23:00 Test Item Value Reference Range Interpretation Comments Basophils (test code = 1.1 See_Comment [Aut omated message] The Basophils) system which ge nerated this result tra nsmitted reference range : <=1.0. The reference r aubrey was not used to int erpret this result as normal/abnormal . [facility] AzleXdyjhslINWIYJUTYW2944-36-05 09:23:00 Test Item Value Reference Range Interpretation Comments Monocytes (test code = Monocytes) 9.4 2.0-12.0 [facility] AzleOacdljjDAQBLFAWKR3844-93-58 09:23:00 Test Item Value Reference Range Interpretation Comments Eosinophils (test code = 4.0 See_Comment [A utomated message] The Eosinophils) system which ge nerated this result tra nsmitted reference range : <=4.0. The reference r aubrey was not used to int erpret this result as normal/abnormal . [facility] AzleZcezysjPFAYXNBRJB1662-63-67 09:23:00 Test Item Value Reference Range Interpretation Comments Lymphocytes # (test code = Lymphocytes 1.4 1.0-5.5 #) [facility] AzleWuioygqUMZXZPLRSI2623-49-26 09:23:00 Test Item Value Reference Range Interpretation Comments Segs-Bands # (test code = Segs-Bands #) 2.5 1.5-8.1 [facility] AzleXdueldxPXKPQJLVTA1275-97-29 09:23:00 Test Item Value Reference Range Interpretation Comments Eosinophils # (test code 0.2 See_Comment [A utomated message] The = Eosinophils #) system whic h generated this result tra nsmitted reference range : <=0.5. The reference r aubrey was not used to int erpret this result as normal/abnormal . [facility] AzleCoiddrtWCROYJVWDW0332-03-66 09:23:00 Test Item Value Reference Range Interpretation Comments Monocytes # (test code 0.4 See_Comment [Aut omated message] The = Monocytes #) system which generated this result tra nsmitted reference range : <=0.8. The reference r aubrey was not used to int erpret this result as normal/abnormal . [facility] AzleVoundmwENYDRQFWYS0396-30-57 09:23:00 Test Item Value Reference Range Interpretation Comments RDW (test code = RDW) 14.5 11.5-14.5 [facility] AzleJgdendsEDZCFJJQFY4104-15-76 09:23:00 Test Item Value Reference Range Interpretation Comments MCH (test code = MCH) 31.1 pg 27.0-31.0 [facility] AzleSodmcnlORQOKXGWLQ0082-01-74 09:23:00 Test Item Value Reference Range Interpretation Comments MCHC (test code = MCHC) 33.9 32.0-36.0 [facility] AzleKefguckEQCMJSZEGJ5408-89-67 09:23:00 Test Item Value Reference Range Interpretation Comments MPV (test code = MPV) 7.7 7.4-10.4 [facility] AzleQhsmxlnNXBBEWKCHX8823-19-55 09:23:00 Test Item Value Reference Range Interpretation Comments Platelet (test code = Platelet) 172 133-450 [facility] AzleCtlqrenEXLUTRIFHE3419-35-09 09:23:00 Test Item Value Reference Range Interpretation Comments WBC (test code = WBC) 4.6 3.7-10.4 [facility] AzleMvbiyhnVZHJNUBRUJ3796-18-85 09:23:00 Test Item Value Reference Range Interpretation Comments Hct (test code = Hct) 42.6 36.0-48.0 [facility] AzleSzdkjwoYAVGIOLSGW6472-20-19 09:23:00 Test Item Value Reference Range Interpretation Comments MCV (test code = MCV) 91.8 80.0-98.0 [facility] AzleHhebocuXSZDEHTDEV0980-80-17 09:23:00 Test Item Value Reference Range Interpretation Comments Hgb (test code = Hgb) 14.5 12.0-16.0 [facility] AzleFgyilcwFQZHUXWZMW5534-67-85 09:23:00 Test Item Value Reference Range Interpretation Comments RBC (test code = RBC) 4.64 4.20-5.40 [facility]PnjvtpiGCSILM1928-21-86 11:11:37 Test Item Value Reference Range Interpretation Comments CHD Risk (test code = CHD Risk) 2.61 3.90-5.80 [facility] HospitalRoaeyfmQDKVAH4048-60-61 11:11:37 Test Item Value Reference Range Interpretation Comments Chol (test code = Chol) 149 [facility] HospitalGzvslsoQGPYNK1456-63-33 11:11:37 Test Item Value Reference Range Interpretation Comments Trig (test code = Trig) 81 [facility] HospitalLaspsmxHOOMNG8972-31-33 11:11:37 Test Item Value Reference Range Interpretation Comments HDL (test code = HDL) 57 [facility] HospitalSvnqokmWTEAPE0842-73-38 11:11:37 Test Item Value Reference Range Interpretation Comments LDL (Calculated) (test code = LDL 76 (Calculated)) [facility] HospitalCpcjvblZVNRIK3178-80-77 11:11:37 Test Item Value Reference Range Interpretation Comments VLDL (test code = VLDL) [facility] ORDNJYQAQ7892-84-80 11:11:37 Test Item Value Reference Range Interpretation Comments Hgb A1C (test code = Hgb A1C) 5.1 [facility] AND NLGQX8133-22-82 08:22:00 Test Item Value Reference Range Interpretation Comments UA pH (test code = UA pH) 6.0 1 5.0-8.0 [facility] AND [id number] 08:22:00 Test Item Value Reference Range Interpretation Comments UA Glucose (test code Negative (06/22/17 3:22 = UA Glucose) AM) [facility] AND [id number] 08:22:00 Test Item Value Reference Range Interpretation Comments UA Protein (test code Negative (06/22/17 3:22 = UA Protein) AM) [facility] AND [id number] 08:22:00 Test Item Value Reference Range Interpretation Comments UA Leuk Est (test Negative (06/22/17 3:22 code = UA Leuk Est) AM) [facility] AND VZTJG5137-02-66 08:22:00 Test Item Value Reference Range Interpretation Comments UA Nitrite (test code Negative (06/22/17 3:22 = UA Nitrite) AM) [facility] AND [id number] 08:22:00 Test Item Value Reference Range Interpretation Comments UA Sq Epi (test code = UA Sq Occasional /LPF Epi) [facility] AND [id number] 08:22:00 Test Item Value Reference Range Interpretation Comments UA Ketones (test code Negative *NA*(06/22/17 = UA Ketones) 3:22 AM) [facility] AND [id number] 08:22:00 Test Item Value Reference Range Interpretation Comments UA Bili (test code = Negative *NA*(06/22/17 UA Bili) 3:22 AM) [facility] AND [id number] 08:22:00 Test Item Value Reference Range Interpretation Comments UA Turbidity (test code = Clear (06/22/17 3:22 UA Turbidity) AM) [facility] AND [id number] 08:22:00 Test Item Value Reference Range Interpretation Comments UA Spec Grav (test code *NA*(06/22/17 3:22 AM) = UA Spec Grav) [facility] AND [id number] 08:22:00 Test Item Value Reference Range Interpretation Comments UA Urobilinogen (test code = UA 0.2 0.1-1.0 Urobilinogen) [facility] AND [id number] 08:22:00 Test Item Value Reference Range Interpretation Comments UA Blood (test code = Negative (06/22/17 3:22 UA Blood) AM) [facility] AND [id number] 08:22:00 Test Item Value Reference Range Interpretation Comments UA WBC (test code = UA WBC) 0-2 /HPF [facility] AND [id number] 08:22:00 Test Item Value Reference Range Interpretation Comments UA RBC (test code = 0-2 /HPF See_Comment [Automa saeid message] The UA RBC) system which ge nerated this result tra nsmitted reference range : <=2. The reference range was not used to interpr et this result as rosi l/abnormal. [facility] AND [id number] 08:22:00 Test Item Value Reference Range Interpretation Comments UA Bacteria (test code = UA Occasional /HPF Bacteria) [facility] AND EABOS1492-19-28 08:22:00 Test Item Value Reference Range Interpretation Comments UA Color (test code = Yellow *NA*(06/22/17 UA Color) 3:22 AM) [facility] [employer] [id number] 03:07:00 Test Item Value Reference Range Interpretation Comments Total CK (test code = Total CK) 92 12-191 [facility] DallasTapnScrapCARSeren PhotonicsAC EANBXLU1408-98-60 03:07:00 Test Item Value Reference Range Interpretation Comments Troponin-I (test code no gt See_Comment [Auto mated message] The = Troponin-I) system which g enerated this result transmit saeid reference range : <=0.40. The reference r aubrey was not used to interpr et this result as rosi l/abnormal. [facility] [employer] [id number] 03:07:00 Test Item Value Reference Range Interpretation Comments A/G Ratio (test code = A/G Ratio) 1.0 0.7-1.6 [facility] [employer] [id number] 03:07:00 Test Item Value Reference Range Interpretation Comments Globulin (test code = Globulin) 3.4 2.7-4.2 [facility] [employer] [id number] 03:07:00 Test Item Value Reference Range Interpretation Comments B/C Ratio (test code = B/C Ratio) 15 6-25 [facility] [employer] [id number] 03:07:00 Test Item Value Reference Range Interpretation Comments AGAP (test code = AGAP) 10.3 10.0-20.0 [facility] [employer] [id number] 03:07:00 Test Item Value Reference Range Interpretation Comments eGFR (test code = eGFR) 67 [facility] [employer] [id number] 03:07:00 Test Item Value Reference Range Interpretation Comments ASPARTATE TRANSAMINASE 15 See_Comment [Aut omated message] (test code = ASPARTATE The s ystem which TRANSAMINASE) generated this result transmitted ref erence range: <=37. Th e reference range was not used to interpr et this result as normal/abnormal . [facility] [employer] [id number] 03:07:00 Test Item Value Reference Range Interpretation Comments Total Protein (test code = Total 6.9 6.4-8.4 Protein) [facility] [employer] [id number] 03:07:00 Test Item Value Reference Range Interpretation Comments Chloride Lvl (test code = Chloride Lvl) 107 95-109 [facility]2017-08-15 03:07:00 Test Item Value Reference Range Interpretation Comments Potassium Lvl (test code = Potassium 3.3 3.5-5.1 Lvl) [facility]2017-08-15 03:07:00 Test Item Value Reference Range Interpretation Comments Sodium Lvl (test code = Sodium Lvl) 142 135-145 [facility]2017-08-15 03:07:00 Test Item Value Reference Range Interpretation Comments Creatinine Lvl (test code = Creatinine 0.88 0.50-1.40 Lvl) [facility]2017-08-15 03:07:00 Test Item Value Reference Range Interpretation Comments Calcium Lvl (test code = Calcium Lvl) 8.4 8.5-10.5 [facility]2017-08-15 03:07:00 Test Item Value Reference Range Interpretation Comments Bili Total (test code = Bili Total) 0.6 0.2-1.3 [facility]2017-08-15 03:07:00 Test Item Value Reference Range Interpretation Comments CO2 (test code = CO2) 28 24-32 [facility]2017-08-15 03:07:00 Test Item Value Reference Range Interpretation Comments ALANINE AMINOTRANSFERASE 20 See_Comment [A utomated message] (test code = ALANINE The sys tem which AMINOTRANSFERASE) generated this result transmitted ref erence range: <=65. Th e reference range was not used to int erpret this result as normal/abnormal . [facility]2017-08-15 03:07:00 Test Item Value Reference Range Interpretation Comments Glucose Lvl (test code = Glucose Lvl) 94 70-99 [facility]2017-08-15 03:07:00 Test Item Value Reference Range Interpretation Comments BUN (test code = BUN) 13 7-22 [facility]2017-08-15 03:07:00 Test Item Value Reference Range Interpretation Comments Alk Phos (test code = Alk Phos) 78 39-136 [facility]2017-08-15 03:07:00 Test Item Value Reference Range Interpretation Comments Albumin Lvl (test code = Albumin Lvl) 3.5 3.5-5.0 [id number] 03:07:00 Test Item Value Reference Range Interpretation Comments Basophils # (test code 0.1 See_Comment [Aut omated message] The = Basophils #) system which generated this result tra nsmitted reference range : <=0.2. The reference r aubrey was not used to int erpret this result as normal/abnormal . [id number] 03:07:00 Test Item Value Reference Range Interpretation Comments Eosinophils # (test code 0.2 See_Comment [A utomated message] The = Eosinophils #) system whic h generated this result tra nsmitted reference range : <=0.5. The reference r aubrey was not used to int erpret this result as normal/abnormal . [id number] 03:07:00 Test Item Value Reference Range Interpretation Comments Lymphocytes (test code = Lymphocytes) 30.9 20.0-40.0 [id number] 03:07:00 Test Item Value Reference Range Interpretation Comments Monocytes (test code = Monocytes) 10.0 2.0-12.0 [id number] 03:07:00 Test Item Value Reference Range Interpretation Comments Eosinophils (test code = 4.5 See_Comment [A utomated message] The Eosinophils) system which ge nerated this result tra nsmitted reference range : <=4.0. The reference r aubrey was not used to int erpret this result as normal/abnormal . [id number] 03:07:00 Test Item Value Reference Range Interpretation Comments Basophils (test code = 1.3 See_Comment [Aut omated message] The Basophils) system which ge nerated this result tra nsmitted reference range : <=1.0. The reference r aubrey was not used to int erpret this result as normal/abnormal . [id number] 03:07:00 Test Item Value Reference Range Interpretation Comments Segs (test code = Segs) 53.3 45.0-75.0 [id number] 03:07:00 Test Item Value Reference Range Interpretation Comments Segs-Bands # (test code = Segs-Bands #) 2.7 1.5-8.1 [id number] 03:07:00 Test Item Value Reference Range Interpretation Comments Lymphocytes # (test code = Lymphocytes 1.5 1.0-5.5 #) [id number] 03:07:00 Test Item Value Reference Range Interpretation Comments Monocytes # (test code 0.5 See_Comment [Aut omated message] The = Monocytes #) system which generated this result tra nsmitted reference range : <=0.8. The reference r aubrey was not used to int erpret this result as normal/abnormal . [id number] 03:07:00 Test Item Value Reference Range Interpretation Comments Platelet (test code = Platelet) 196 133-450 [id number] 03:07:00 Test Item Value Reference Range Interpretation Comments MPV (test code = MPV) 7.3 7.4-10.4 [id number] 03:07:00 Test Item Value Reference Range Interpretation Comments MCHC (test code = MCHC) 34.8 32.0-36.0 [id number] 03:07:00 Test Item Value Reference Range Interpretation Comments RDW (test code = RDW) 14.5 11.5-14.5 [facility] [id number] 03:07:00 Test Item Value Reference Range Interpretation Comments MCH (test code = MCH) 31.6 pg 27.0-31.0 [id number] 03:07:00 Test Item Value Reference Range Interpretation Comments Hgb (test code = Hgb) 14.2 12.0-16.0 [id number] 03:07:00 Test Item Value Reference Range Interpretation Comments Hct (test code = Hct) 40.7 36.0-48.0 [id number] 03:07:00 Test Item Value Reference Range Interpretation Comments MCV (test code = MCV) 90.8 80.0-98.0 [facility] [id number] 03:07:00 Test Item Value Reference Range Interpretation Comments RBC X 10x6 (test code = RBC X 10x6) 4.49 4.20-5.40 [id number] 03:07:00 Test Item Value Reference Range Interpretation Comments WBC X 10x3 (test code = WBC X 10x3) 5.0 3.7-10.4 [facility]
--- NOTE | 2023-03-15 11:12 | RAD REPORT ---
EXAM DESCRIPTION: RAD - Chest Single View - 03/15/2023 10:39 am CLINICAL HISTORY: Cough;Dyspnea Chest pain. COMPARISON: No comparisons FINDINGS: Portable technique limits examination quality. The lungs are grossly clear. The heart is mildly enlarged. No displaced fractures. IMPRESSION: No acute intrathoracic process suspected.
[2023-03-15] MEDS ORDERED: ONDANSETRON 4 MG/2 ML VIAL ONE (11:24)
[2023-03-15] MEDS ORDERED: FAMOTIDINE 20 MG/2 ML VIAL IV ONE (11:24)
[2023-03-15] MEDS ORDERED: NA CHLORIDE 0.9% 1,000 ML ONE (11:24)
[2023-03-15 11:49] LABS: Absolute Lymphocytes (CBC) 0.7 K/uL (0.7-4.9); Hematocrit 40.2 % (36.0-45.0); Lymphocytes % 9.8 % (15.3-44.8); MCV 94.6 fL (80-100); MPV 7.3 fL (7.6-11.3); RBC Red Blood Cell Count 4.25 M/uL (3.86-4.86)
[2023-03-15 12:17] LABS: Albumin 3.3 g/dL (3.4-5.0); Bilirubin Direct 0.1 mg/dL (0-0.2); Bilirubin Total 0.5 mg/dL (0.2-1.0); Magnesium 2.1 mg/dL (1.6-2.4); Protein, Total 6.7 g/dL (6.4-8.2); Troponin High Sensitivity 6.8 pg/mL (<58.9)
--- NOTE | 2023-03-15 12:29 | ER ---
Nurse's Notes [facility] Name: Rosanna Pollack Age: 77 yrs Sex: Female : 1945 Arrival Date: 03/15/2023 Time: 10:04 Bed 3 Private MD: Diagnosis: Chest pain, unspecified;Vomiting;Essential (primary) hypertension;Dizziness and giddiness;UTI/ Urinary tract infection, site not specified Presentation: 03/15 10:50 Chief complaint: Patient states: she has been feeling nauseated and dizzy since this ap3 morning at 0130. patient states she has also "been losing a lot of blood" from her rectum and is unsure if it is from hemorrhoids or a different bleed. Coronavirus screen: At this time, the client does not indicate any symptoms associated with coronavirus-19. Ebola Screen: No symptoms or risks identified at this time. Initial Sepsis Screen: Does the patient meet any 2 criteria? RR > 20 per min. Does the patient have a suspected source of infection? No. Patient's initial sepsis screen is negative. Risk Assessment: Do you want to hurt yourself or someone else? Patient reports no desire to harm self or others. Onset of symptoms was March 15, 2023 at 01:30. 10:50 Method Of Arrival: Wheelchair ap3 10:55 Acuity: ALEXANDRU 2 ap3 Triage Assessment: 10:54 General: Appears ill, Behavior is cooperative, appropriate for age. Pain: Complains of ap3 pain in chest and abdomen and head Pain currently is 6 out of 10 on a pain scale. Neuro: Level of Consciousness is awake, alert, obeys commands, Oriented to person, place, time, situation. Cardiovascular: Patient's skin is warm and dry. Cardiovascular: Reports chest pain. Respiratory: Airway is patent Respiratory effort is even, unlabored, Respiratory pattern is regular, symmetrical. GI: Reports rectal bleeding, nausea, vomiting. Historical: - Allergies: 10:53 No Known Allergies; ap3 - Home Meds: 17:19 lisinopril 20 mg Oral tablet 1 tabs daily [Active]; levothyroxine 100 mcg oral tablet 1 nj1 tab daily [Active]; - PMHx: 10:53 Hypertensive disorder; ap3 10:55 colon sx; ap3 - PSHx: 10:53 hysterectomy; Thyroidectomy; ap3 - Immunization history:: Client reports receiving the 2nd dose of the Covid vaccine. - Social history:: Smoking status: Patient denies any tobacco usage or history of. - Family history:: not pertinent. Screenin:55 [facility] ED Fall Risk Assessment (Adult). Abuse screen: Denies threats or abuse. ap3 Nutritional screening: No deficits noted. Tuberculosis screening: No symptoms or risk factors identified. Assessment: 11:30 Reassessment: Patient appears in no apparent distress at this time. Patient and/or nj1 family updated on plan of care and expected duration. Pain level reassessed. Patient is alert, oriented x 3, equal unlabored respirations, skin warm/dry/pink. See triage assessment. 11:30 GI: Reports nausea. nj1 12:45 Reassessment: Patient appears in no apparent distress at this time. Patient and/or nj1 family updated on plan of care and expected duration. Pain level reassessed. Patient is alert, oriented x 3, equal unlabored respirations, skin warm/dry/pink. Pain: Complains of pain in head Pain currently is 8 out of 10 on a pain scale. Quality of pain is described as aching. 14:00 Reassessment: Patient appears in no apparent distress at this time. Patient and/or nj1 family updated on plan of care and expected duration. Pain level reassessed. Patient is alert, oriented x 3, equal unlabored respirations, skin warm/dry/pink. 15:00 Reassessment: Patient appears in no apparent distress at this time. Patient and/or nj1 family updated on plan of care and expected duration. Pain level reassessed. Patient is alert, oriented x 3, equal unlabored respirations, skin warm/dry/pink. 16:00 Reassessment: Patient appears in no apparent distress at this time. Patient and/or nj1 family updated on plan of care and expected duration. Pain level reassessed. Patient is alert, oriented x 3, equal unlabored respirations, skin warm/dry/pink. Patient states feeling better. Patient states symptoms have improved. 16:20 Reassessment: Unsuccessful attempt to call report at this time. "Nurse will call back nj for report". Vital Signs: 10:50 BP 145 / 75; Pulse 51; Resp 23; Temp 98.3; Pulse Ox 100% ; Weight 68.04 kg; Height 5 ap3 ft. 4 in. ; Pain 6/10; 11:45 BP 146 / 76; Pulse 53; Resp 17; Pulse Ox 100% on R/A; nj1 12:45 Pain 8/10; nj1 13:09 BP 178 / 85; Pulse 47; Resp 18; Pulse Ox 100% on R/A; nj1 14:07 BP 158 / 76; Pulse 48; Resp 19; Pulse Ox 100% ; Pain 6/10; nj1 15:00 BP 150 / 71; Pulse 51; Resp 16; Pulse Ox 99% on R/A; nj1 15:30 BP 156 / 92; Pulse 53; Resp 20; Pulse Ox 100% ; nj1 17:14 BP 157 / 71; Pulse 50; Resp 17; Temp 97.9(O); Pulse Ox 99% on R/A; nj1 10:50 Body Mass Index 25.75 (68.04 kg, 162.56 cm) ap3 10:50 Pain Scale: Adult ap3 12:45 Pain Scale: Adult nj1 14:07 Pain Scale: Adult nj1 ED Course: 10:05 Patient arrived in ED. am2 10:22 Jason Heaton MD is Attending Physician. estella 10:41 XRAY Chest (1 view) In Process Unspecified. EDMS 10:53 Triage completed. ap3 10:55 Patient maintains SpO2 saturation greater than 95% on room air. ap3 10:55 Arm band placed on right wrist. ap3 11:09 Mague Llamas, RN is Primary Nurse. nj1 11:30 Patient has correct armband on for positive identification. Bed in low position. Call [facility] light in reach. Side rails up X 1. Adult w/ patient. 11:33 Inserted saline lock: 20 gauge in right antecubital area, using aseptic technique. nj1 Blood collected. 12:28 US Extremity Venous W Compression Jovon In Process Unspecified. EDMS 12:28 Prabhu Navarrete MD is Hospitalizing Provider. estella 12:47 Jimmy Branham is Hospitalizing Provider. estella 13:08 CT Head Brain wo Cont In Process Unspecified. EDMS 17:24 No provider procedures requiring assistance completed. Patient admitted, IV remains in ca1 place. Administered Medications: 10:57 CANCELLED (Duplicate Order): Aspirin PO Chewable Tablet 162 mg PO once estella 11:33 Drug: NS 0.9% IV 1000 ml Route: IV; Rate: 125 ml/hr; Site: right antecubital; nj1 17:30 Follow up: Response: No adverse reaction; IV Status: IV converted to saline lock; IV nj1 Intake: 600ml 11:33 Drug: Ondansetron IVP 4 mg Route: IVP; Site: right antecubital; nj1 12:00 Follow up: Response: No adverse reaction nj1 11:35 Drug: Famotidine IVP 20 mg Route: IVP; Site: right antecubital; nj1 12:00 Follow up: Response: No adverse reaction nj1 13:27 Drug: Acetaminophen PO 1000 mg Route: PO; nj1 14:02 Follow up: Response: No adverse reaction nj1 15:20 Drug: Rocephin IV 1 grams Route: IV; Rate: per protocol; Site: right antecubital; aa5 Medication: 17:24 VIS not applicable for this client. nj1 Intake: 17:30 IV: 600ml; Total: 600ml. nj1 Outcome: 12:29 Decision to Hospitalize by Provider. estella 17:21 Admitted to Med/surg accompanied by tech, via wheelchair, room 208, Report called to reji Luis RN 17:21 Condition: stable 17:21 Instructed on the need for admit. 17:30 Patient left the ED. nj1 Signatures: Dispatcher [employer] EDJason Cook MD MD cha Calderon, Audri, RN RN aa5 Lilia Kuhn am2 Lilia Whatley RN RN ap3 Mague Llamas RN RN nj1 Corrections: (The following items were deleted from the chart) 10:55 10:50 Acuity: ALEXANDRU 3 ap3 ap3 17:15 14:07 BP 158 / 76; Pulse 48bpm; Resp 19bpm; Pulse Ox 100%; nj1 nj1 17:15 17:14 BP 157 / 71; Pulse 50bpm; Resp 17bpm; Pulse Ox 99% RA; nj1 nj1 17:55 17:41 Patient left the ED. nj1 nj1
--- NOTE | 2023-03-15 12:29 | EDPHYS ---
Physician Documentation [facility] Name: Rosanna Pollack Age: 77 yrs Sex: Female : 1945 Arrival Date: 03/15/2023 Time: 10:04 Bed 3 Private MD: ED Physician Jason Heaton HPI: 03/15 12:22 This 77 yrs old Female presents to ER via Wheelchair with complaints of Chest estella Pain, Dizziness, Nausea. 12:22 The patient or guardian reports chest pain that is located primarily in the substernal estella area. Onset: 2 day(s) ago. The pain does not radiate. Associated signs and symptoms: The patient has no apparent associated signs or symptoms. The chest pain is described as a pressure. Duration: The patient or guardian reports multiple episodes, with no pattern. Modifying factors: The symptoms are alleviated by nothing. the symptoms are aggravated by nothing. Severity of pain: At its worst the pain was mild in the emergency department the pain is unchanged. Historical: - Allergies: 10:53 No Known Allergies; ap3 - Home Meds: 17:19 lisinopril 20 mg Oral tablet 1 tabs daily [Active]; levothyroxine 100 mcg oral tablet 1 nj1 tab daily [Active]; - PMHx: 10:53 Hypertensive disorder; ap3 10:55 colon sx; ap3 - PSHx: 10:53 hysterectomy; Thyroidectomy; ap3 - Immunization history:: Client reports receiving the 2nd dose of the Covid vaccine. - Social history:: Smoking status: Patient denies any tobacco usage or history of. - Family history:: not pertinent. ROS: 12:22 Constitutional: Negative for fever, chills, and weight loss, Eyes: Negative for injury, estella pain, redness, and discharge, ENT: Negative for injury, pain, and discharge, Neck: Negative for injury, pain, and swelling, Respiratory: Negative for shortness of breath, cough, wheezing, and pleuritic chest pain, Abdomen/GI: Negative for abdominal pain, nausea, vomiting, diarrhea, and constipation, Back: Negative for injury and pain, : Negative for injury, bleeding, discharge, and swelling, MS/Extremity: Negative for injury and deformity, Skin: Negative for injury, rash, and discoloration, Neuro: Negative for headache, weakness, numbness, tingling, and seizure, Psych: Negative for depression, anxiety, suicide ideation, homicidal ideation, and hallucinations, Allergy/Immunology: Negative for hives, rash, and allergies, Endocrine: Negative for neck swelling, polydipsia, polyuria, polyphagia, and marked weight changes, Hematologic/Lymphatic: Negative for swollen nodes, abnormal bleeding, and unusual bruising. 12:22 Cardiovascular: Positive for chest pain. 12:22 Abdomen/GI: Positive for nausea and vomiting. Exam: 12:22 Constitutional: This is a well developed, well nourished patient who is awake, alert, estella and in no acute distress. Head/Face: Normocephalic, atraumatic. Eyes: Pupils equal round and reactive to light, extra-ocular motions intact. Lids and lashes normal. Conjunctiva and sclera are non-icteric and not injected. Cornea within normal limits. Periorbital areas with no swelling, redness, or edema. ENT: Nares patent. No nasal discharge, no septal abnormalities noted. Tympanic membranes are normal and external auditory canals are clear. Oropharynx with no redness, swelling, or masses, exudates, or evidence of obstruction, uvula midline. Mucous membranes moist. Neck: Trachea midline, no thyromegaly or masses palpated, and no cervical lymphadenopathy. Supple, full range of motion without nuchal rigidity, or vertebral point tenderness. No Meningismus. Chest/axilla: Normal chest wall appearance and motion. Nontender with no deformity. No lesions are appreciated. Cardiovascular: Regular rate and rhythm with a normal S1 and S2. No gallops, murmurs, or rubs. Normal PMI, no JVD. No pulse deficits. Respiratory: Lungs have equal breath sounds bilaterally, clear to auscultation and percussion. No rales, rhonchi or wheezes noted. No increased work of breathing, no retractions or nasal flaring. Abdomen/GI: Soft, non-tender, with normal bowel sounds. No distension or tympany. No guarding or rebound. No evidence of tenderness throughout. Back: No spinal tenderness. No costovertebral tenderness. Full range of motion. Female : Normal external genitalia. Skin: Warm, dry with normal turgor. Normal color with no rashes, no lesions, and no evidence of cellulitis. MS/ Extremity: Pulses equal, no cyanosis. Neurovascular intact. Full, normal range of motion. Neuro: Awake and alert, GCS 15, oriented to person, place, time, and situation. Cranial nerves II-XII grossly intact. Motor strength 5/5 in all extremities. Sensory grossly intact. Cerebellar exam normal. Normal gait. Psych: Awake, alert, with orientation to person, place and time. Behavior, mood, and affect are within normal limits. 12:22 ECG was reviewed by the Attending Physician. Vital Signs: 10:50 BP 145 / 75; Pulse 51; Resp 23; Temp 98.3; Pulse Ox 100% ; Weight 68.04 kg; Height 5 ap3 ft. 4 in. ; Pain 6/10; 11:45 BP 146 / 76; Pulse 53; Resp 17; Pulse Ox 100% on R/A; nj1 12:45 Pain 8/10; nj1 13:09 BP 178 / 85; Pulse 47; Resp 18; Pulse Ox 100% on R/A; nj1 14:07 BP 158 / 76; Pulse 48; Resp 19; Pulse Ox 100% ; Pain 6/10; nj1 15:00 BP 150 / 71; Pulse 51; Resp 16; Pulse Ox 99% on R/A; nj1 15:30 BP 156 / 92; Pulse 53; Resp 20; Pulse Ox 100% ; nj1 17:14 BP 157 / 71; Pulse 50; Resp 17; Temp 97.9(O); Pulse Ox 99% on R/A; nj1 10:50 Body Mass Index 25.75 (68.04 kg, 162.56 cm) ap3 10:50 Pain Scale: Adult ap3 12:45 Pain Scale: Adult nj1 14:07 Pain Scale: Adult nj1 MDM: 10:56 Patient medically screened. etsella 12:25 Differential diagnosis: abnormal EKG, acute myocardial infarction, anxiety, coronary estella artery disease chest wall pain, Cholelithiasis gastritis, herpes zoster, hiatal hernia, pancreatitis, pneumonia, pulmonary embolus, stable angina, unstable angina. HEART Score: History: Moderately Suspicious (1), ECG: Non specific repolarization disturbance / LBTB / PM (1), Age: > or = 65 years (2), Risk Factors: > or = 3 Risk factors for atherosclerotic disease (2), [Hypercholesterolemia] [Hypertension] [+ Family HX] Troponin: < or = 1 x Normal Limit (0). The patient was given aspirin in the Emergency Department. HELEN Risk Score: 1 - patient's age is greater or equal to 65 years, 1 - Three or more CAD risk factors, 1- Known CAD, TOTAL SCORE = 3. Data reviewed: vital signs, nurses notes, lab test result(s), EKG, radiologic studies, plain films. Consideration of Admission/Observation Patient was admitted/placed on observation. Escalation of care including admission/observation considered. I considered the following discharge prescriptions or medication management in the emergency department Medications were administered in the Emergency Department. See MAR. Test considered but Not performed: CT: no ct pe. Care significantly affected by the following chronic conditions: Hypertension, colon issues. Counseling: I had a detailed discussion with the patient and/or guardian regarding: the historical points, exam findings, and any diagnostic results supporting the discharge/admit diagnosis, the presence of at least one elevated blood pressure reading (>120/80) during this emergency department visit, lab results, radiology results, the need for further work-up and treatment in the hospital. 03/15 10:24 Order name: Basic Metabolic Panel; Complete Time: 12:22 [facility] 03/15 10:24 Order name: CBC with Diff; Complete Time: 12:22 03/15 10:24 Order name: LFT's; Complete Time: 12:22 [facility] 03/15 10:24 Order name: Magnesium; Complete Time: 12:22 [facility] 03/15 10:24 Order name: NT PRO-BNP; Complete Time: 12:22 03/15 10:24 Order name: PT-INR 03/15 10:24 Order name: Troponin HS; Complete Time: 12:22 03/15 10:24 Order name: Lipase; Complete Time: 12:22 [facility] 03/15 10:58 Order name: Type And Screen 03/15 13:06 Order name: ABO/RH no charge EDPA 03/15 14:28 Order name: Urinalysis w/ reflexes 03/15 10:24 Order name: XRAY Chest (1 view); Complete Time: 12:22 [facility] 03/15 11:55 Order name: US Extremity Venous W Compression Jovon [facility] 03/15 12:54 Order name: CT Head Brain wo Cont 03/15 10:24 Order name: EKG; Complete Time: 10:25 [facility] 03/15 10:24 Order name: Cardiac monitoring; Complete Time: 11:48 [facility] 03/15 10:24 Order name: EKG - Nurse/Tech; Complete Time: 11:53 [facility] 03/15 10:24 Order name: IV Saline Lock; Complete Time: 11:48 [facility] 03/15 10:24 Order name: Labs collected and sent; Complete Time: 11:48 [facility] 03/15 10:24 Order name: O2 Per Protocol; Complete Time: 11:07 [facility] 03/15 10:24 Order name: O2 Sat Monitoring; Complete Time: 11:07 [facility] 03/15 10:58 Order name: IV Saline Lock - Large Bore; Complete Time: 11:47 [facility] 03/15 12:22 Order name: Labs - recollect needed: recollect lavender top; Complete Time: 13:05 bd EC:22 Rate is 51 beats/min. Rhythm is regular. QRS [place] is Normal. MS interval is normal. QRS estella interval is normal. QT interval is normal. No Q waves. T waves are Normal. No ST changes noted. Clinical impression: Sinus bradycardia. Interpreted by me. Reviewed by me. Administered Medications: 10:57 CANCELLED (Duplicate Order): Aspirin PO Chewable Tablet 162 mg PO once estella 11:33 Drug: NS 0.9% IV 1000 ml Route: IV; Rate: 125 ml/hr; Site: right antecubital; nj1 17:30 Follow up: Response: No adverse reaction; IV Status: IV converted to saline lock; IV nj1 Intake: 600ml 11:33 Drug: Ondansetron IVP 4 mg Route: IVP; Site: right antecubital; nj1 12:00 Follow up: Response: No adverse reaction nj1 11:35 Drug: Famotidine IVP 20 mg Route: IVP; Site: right antecubital; nj1 12:00 Follow up: Response: No adverse reaction nj1 13:27 Drug: Acetaminophen PO 1000 mg Route: PO; nj1 14:02 Follow up: Response: No adverse reaction nj1 15:20 Drug: Rocephin IV 1 grams Route: IV; Rate: per protocol; Site: right antecubital; aa5 Disposition Summary: 03/15/23 12:29 Hospitalization Ordered Hospitalization Status: Observation estella Location: Telemetry/MedSurg (observation) estella Condition: Stable estella Problem: new estella Symptoms: have improved estella Bed/Room Type: Standard estella Provider: Jimmy Branham(03/15/23 12:47) estella Room Assignment: 208(03/15/23 15:32) bd Diagnosis - Chest pain, unspecified estella - Vomiting estella - Essential (primary) hypertension estella - Dizziness and giddiness estella - UTI/ Urinary tract infection, site not specified estella Forms: - Medication Reconciliation Form estella - SBAR form estella Signatures: Dispatcher [employer] EDMS Shelby Gracia Corey, MD MD cha Calderon, Audri RN RN aa5 Lilia Whatley RN RN ap3 Mague Llamas RN RN nj1 Corrections: (The following items were deleted from the chart) 10:57 10:24 Aspirin PO Chewable Tablet 162 mg PO once ordered. formerly [facility] 12:47 12:29 Prabhu Navarrete cha [facility] 15:32 12:29 estella bd
--- NOTE | 2023-03-15 12:34 | RAD REPORT ---
EXAM DESCRIPTION: US - Extrem Venous W Compress Jovon - 03/15/2023 12:27 pm CLINICAL HISTORY: PAIN Bilateral leg edema and swelling. COMPARISON: No comparisons TECHNIQUE: Real-time sonographic interrogation of the left and right lower extremity deep venous sys tems was performed. FINDINGS: Normal compressibility, flow augmentation, phasic flow and spontaneous flow is identified in both the left and right lower extremity deep venous systems. IMPRESSION: No sonographic evidence of left or right lower extremity deep venous thrombosis.
[2023-03-15] MEDS ORDERED: ACETAMINOPHEN 500 MG TAB ONE (13:30)
--- NOTE | 2023-03-15 14:10 | RAD REPORT ---
EXAM DESCRIPTION: CT - Head Brain Wo Cont - 03/15/2023 1:06 pm CLINICAL HISTORY: HEADACHE COMPARISON: No comparisons TECHNIQUE: Noncontrast head CT images ad were obtained without IV contrast. Multiplanar reformats we re generated and reviewed. All CT scans are performed using dose optimization technique as appropriate and may include automated exposure control or mA/KV adjustment according to patient size. FINDINGS: No intracranial hemorrhage, mass, or edema. Midline structures are unremarkable. Normal ventricular caliber for age. Muhammad-white matter differentiation is preserved, without evidence of acute infarct. No abnormal extra- axial fluid collections. Mastoid air cells and visualized portions of the paranasal sinuses are clear. No acute bony findings. IMPRESSION: No evidence of an acute intracranial process.
[2023-03-15 14:19] LABS: Protime INR 0.98
[2023-03-15] MEDS ORDERED: HYDROCODONE/APAP 5/325 MG TAB PO PRN (15:13)
[2023-03-15] MEDS ORDERED: CEFTRIAXONE 1000 MG/VIAL ONE (15:17)
[2023-03-15] MEDS ORDERED: ONDANSETRON 4 MG/2 ML VIAL IV PRN (15:21)
[2023-03-15 15:27] LABS: Specific Gravity 1.017 (1.005-1.030); Urine Bacteria None Seen /HPF (<20); Urine Bilirubin NEGATIVE (Negative); Urine Blood Trace (Negative); Urine Clarity Turbid (Clear); Urine Color Light-Yellow (Yellow); Urine Glucose NEGATIVE (Negative); Urine Mucus Slight /HPF (None Seen); Urine Protein NEGATIVE (Negative); Urine RBC <5 /HPF (None Seen); Urine Urobilinogen Normal (Normal); Urine pH 7.5 (5.0-7.0)
--- NOTE | 2023-03-15 15:27 | P.HP ---
Certification for Inpatient Patient admitted to: Observation With expected LOS: <2 Midnights Patient will require the following post-hospital care: None Practitioner: I am a practitioner with admitting privileges, knowledge of patient current condition, hospital course, and medical plan of care. Services: Services provided to patient in accordance with Admission requirements found in Title 42 Section 412.3 of the Code of Federal Regulations Patient History Date of Service: 03/15/23 Reason for admission: Cheest pain, Dizziness History of Present Illness: Patient is a 77-year-old female with a past medical history significant for hypothyroidism, hypertension who presents with complaint of chest pain and dizziness onset this morning. Patient indicated that chest pain is located in the substernal chest. Patient also reports chronic abdominal pain and patient reported intermittent rectal bleeding that has been ongoing for quite some months, the last episode being yesterday. Patient rated pain as 8/10 in severity and described pain as pressure in quality. Patient indicated that chest pain radiates to her left arm and back. Patient reported associated signs and symptoms of shortness of breath, fatigue, weakness, chills and Headache. Patient denies any other signs or symptoms. Symptoms are aggravated or relieved by nothing. Patient decided to present to the hospital due to worsening symptoms. Allergies No Known Allergies Allergy (Unverified 03/15/23 17:45) Home Medications: Levothyroxine [Synthroid] 100 mcg PO DAILY 03/15/23 lisinopriL [Lisinopril] 1 tab PO DAILY 03/15/23 - Past Medical/Surgical History Diabetic: No -: HTN -: Hypothyriodism -: Hysterectomy -: Thyroidectomy - Social History Smoking Status: Never smoker Alcohol use: Yes CD- Drugs: No Caffeine use: No Place of Residence: Home Review of Systems General: Chills, Weakness, Other (Fatigue) Eyes: Unremarkable ENT: Unremarkable Respiratory: Shortness of Breath Cardiovascular: Chest Pain Gastrointestinal: Abdominal Pain, Other (Rectal bleeding ) Genitourinary: Unremarkable Musculoskeletal: Arm Pain, Back Pain Integumentary: Unremarkable Neurological: Weakness, Other (Dizziness, SIMNOS) Lymphatics: Unremarkable Physical Examination - Physical Exam General: Alert, In no apparent distress, Oriented x3, Cooperative HEENT: Atraumatic, PERRLA, Mucous membr. moist/pink, EOMI, Sclerae nonicteric Neck: Supple, 2+ carotid pulse no bruit, No LAD, Without JVD or thyroid abnormality Respiratory: Clear to auscultation bilaterally, Normal air movement Cardiovascular: No edema, Regular rate/rhythm, Normal S1 S2 Capillary refill: <2 Seconds Gastrointestinal: Normal bowel sounds, Soft and benign, No tenderness Musculoskeletal: No clubbing, No swelling, No tenderness Integumentary: No rashes, No significant lesion, No tenderness/swelling Neurological: Normal speech, Normal tone, Normal affect Lymphatics: No axilla or inguinal lymphadenopathy - Studies Laboratory Data (last 24 hrs) 03/15/23 11:33: PT 10.8, INR 0.98 03/15/23 11:33: WBC 6.90, Hgb 13.4, Hct 40.2, Plt Count 204 03/15/23 11:33: Sodium 139, Potassium 4.0, BUN 18, Creatinine 0.66, Glucose 102, Magnesium 2.1, Total Bilirubin 0.5, AST 13 L, ALT 19, Alkaline Phosphatase 75, Lipase 24 Assessment and Plan - Plan --Chest pain. To rule out ACS. We will trend serial troponins--currently negative. Cardiology consulted. Echocardiogram pending to assess cardiac structures and functions. Telemetry to monitor for any significant arrhythmia. Will await further recommendation from field service coordinator. --Dizziness. Carotid Doppler to rule out any carotid artery stenosis. We will get orthostatic vital signs. Echocardiogram pending. Fall precautions. Continue supportive care. --Gastrointestinal bleeding. Patient reported intermittent rectal bleeding. H&H stable. Gastroenterology consulted. Patient placed on Protonix. We will await further recommendation from manager application development. --Hypertension. Poorly controlled. Continue home medications and hydralazine as needed. --Hypothyroidism. Continue Synthroid. --Acute pain. We will manage pain with current pain mgt regimen. --DVT prophylaxis with SCDs Discharge Plan: Home Plan to discharge in: 48 Hours - Advance Directives Does patient have a Living Will: No Does patient have a Durable POA for Healthcare: No - Code Status/Comfort Care Code Status Assessed: Yes Physician Review: Patient Assessed, Agree with Above Assessment and Plan Critical Care: No
[2023-03-15] MEDS: ENOXAPARIN 40 MG/0.4 ML SQ SCH (16:00)
[2023-03-15 18:02] VITALS: BMI 25.7
[2023-03-15 18:19] LABS: Phosphorus 3.1 mg/dL (2.5-4.9); Thyroid Stimulating Hormone 0.366 uIU/mL (0.358-3.740)
[2023-03-15] MEDS: ACETAMINOPHEN 325 MG TABLET PO PRN (20:01)
[2023-03-16] MEDS ORDERED: SODIUM CHLORIDE 0.9% 10ML INJ IV PRN (02:59)
[2023-03-16 05:15] LABS: Absolute Lymphocytes (CBC) 1.1 K/uL (0.7-4.9); Hematocrit 39.4 % (36.0-45.0); Lymphocytes % 22.5 % (15.3-44.8); MCV 94.5 fL (80-100); MPV 7.8 fL (7.6-11.3); RBC Red Blood Cell Count 4.16 M/uL (3.86-4.86)
[2023-03-16 05:16] LABS: Potassium 3.8 mEq/L (3.5-5.1); Troponin High Sensitivity 8.6 pg/mL (<58.9)
--- NOTE | 2023-03-16 06:57 | P.PN ---
Date of Service: 03/16/23 Subjective: Feeling better today no chest pain this morning remains mildly dizzy, +headache nauseated and had episode of emesis ROS: 10 point ROS as noted above, otherwise negative Physical Exam: GEN: Alert, oriented, NAD HEENT: Normal conjunctiva, sclera anicteric CV: Regular rate and rhythm, no edema Pulm: Nonlabored respirations on room air ABD: Soft, nontender, nondistended MSK: mild tenderness/soreness on palpation of left chest Neuro: Normal speech, normal affect vitals reviewed Problem List: Chest pain r/o ACS Dizziness lwoer GI Bleed Hypertension Hypothyroidism Chest pain r/o ACS Dizziness trend troponins - currently negative tenderness/soreness with palpation of left chest wall; reports recently moved in last month, unpacking items this week monitor on telemetry cardiology consulted echo pending Carotid doppler negative orthostatic vitals negative pain medication as needed GI Bleed Patient reports intermittent rectal bleeding H&H stable GI consulted NPO after midnight for tentative scope 03/17 Continue protonix Hypertension - Continue home medications and hydralazine as needed. Hypothyroidism - Continue Synthroid. VTE: SCD Code: Full Dispo: Home 1-2 days
[2023-03-16] MEDS: ACETAMINOPHEN 325 MG TABLET PO PRN ×2 (07:53→21:14)
--- NOTE | 2023-03-16 07:53 | EKG ---
Test Date: 2023-03-15 Test Time: 11:14:28 Bond Broker: CASSIE MEASUREMENT RESULTS: Intervals: Rate: 51 DC: 166 QRSD: 92 QT: 444 QTc: 409 [place]: P: 58 DC: 166 QRS: -1 T: 122 INTERPRETIVE STATEMENTS: Sinus bradycardia with premature atrial complexes Otherwise normal ECG No previous ECG available for comparison Electronically Signed On 03-16-23 07:52:25 CDT by Eleazar Castellanos
--- NOTE | 2023-03-16 08:23 | RAD REPORT ---
EXAM DESCRIPTION: - CP - 03/16/2023 1:09 am CLINICAL HISTORY: Dizziness Headache, dizziness, drowsiness COMPARISON: No comparisons TECHNIQUE: Real-time sonographic evaluation of both carotid systems was performed. Doppler interroga tion was performed with waveform tracing bilaterally. FINDINGS: Normal high resistance waveforms are noted in both external carotid arteries. The common c arotid arteries and internal carotid arteries show normal low resistance waveforms. No significant plaque formation is seen. Peak systolic and end diastolic velocity values and the ICA/ CCA ratios are in the non-hemodynamically significant range. Antegrade flow seen in both vertebral arteries. IMPRESSION: No significant atherosclerotic changes noted. No evidence of a hemodynamically significant stenosis.
[2023-03-16] MEDS: ASPIRIN 81 MG CHEWABLE TABLET PO SCH (08:24)
[2023-03-16] MEDS: PANTOPRAZOLE 40 MG INJ IVP SCH ×2 (08:24→21:15)
[2023-03-16] MEDS: ENOXAPARIN 40 MG/0.4 ML SQ SCH (08:24)
[2023-03-16] MEDS ORDERED: POTASSIUM CL SA 10 MEQ TAB PO ONE (09:00)
[2023-03-16] MEDS ORDERED: BISACODYL E.C. 5 MG TAB PO ONE (09:34)
[2023-03-16] MEDS ORDERED: METOCLOPRAMIDE 10 MG/2mL INJ IV SCH (11:00)
--- NOTE | 2023-03-16 11:11 | P.DS ---
Admission Date: 03/15/23 Discharge Date: 03/17/23 Disposition: ROUTINE DISCHARGE Discharge Condition: GOOD Reason for Admission: Cheest pain, Dizziness Consultations: Cardiology - Dr. Castellanos Gastrointestinal - Dr. Alberts Brief History of Present Illness: 77yo F, PMH: hypothyroidism, hypertension Patient presents with complaint of chest pain and dizziness onset this morning. Patient indicated that chest pain is located in the substernal chest. Patient also reports chronic abdominal pain and patient reported intermittent rectal bleeding that has been ongoing for quite some months, the last episode being yesterday. Patient rated pain as 8/10 in severity and described pain as pressure in quality. Patient indicated that chest pain radiates to her left arm and back. Patient reported associated signs and symptoms of shortness of breath, fatigue, weakness, chills and Headache. Patient denies any other signs or symptoms. Symptoms are aggravated or relieved by nothing. Patient decided to present to the hospital due to worsening symptoms. Hospital Course: Problem List: Chest pain, atypical. strain suspected Dizziness Lower GI Bleed secondary to hemorrhoids Hypertension Hypothyroidism Patient presented with chest pain and dizziness. Troponins were negative x3, EKG was normal, and no acute abnormalities noted on imaging. Cardiology was consulted. Echocardiogram was normal. It was noted that she had chest tenderness on exam, suggesting musculoskeletal etiology. She did reprot recently moving and has been packing/unpacking. During her hospitalization, she was given aspirin and protonix. Orthostatic vitals were negative. She was monitored overnight, her symptoms were relieved and was deemed stable for discharge home. She did report bloody BMs. GI consulted, and patient underwent colonoscopy on 03/17 which noted louisa internal hemorrhoids and non-bleeding diverticula, no active bleed Follow-up PCP within 1 week Cardiology within 4 weeks GI in 4-6 weeks Continue home meds as previously prescribed. Recommend high fiber diet - goal to have soft daily bowel movement Physical Exam: GEN: Alert, oriented, NAD HEENT: Normal conjunctiva, sclera anicteric CV: Regular rate and rhythm, no edema Pulm: Nonlabored respirations on room air ABD: Soft, nontender, nondistended MSK: mild tenderness on left anterior chest, no overlying skin changes Neuro: Normal speech, normal affect Vital Signs/Physical Exam: Temp Pulse Resp BP Pulse Ox 97.1 F 54 16 134/66 97 03/16/23 08:00 03/16/23 08:00 03/16/23 08:00 03/16/23 08:00 03/16/23 08:00 Laboratory Data at Discharge: WBC 4.80 thou/uL (4.3-10.9) 03/16/23 04:19 Hgb 13.4 g/dL (12.0-15.0) 03/16/23 04:19 Hct 39.4 % (36.0-45.0) 03/16/23 04:19 Plt Count 173 thou/uL (152-406) 03/16/23 04:19 PT 10.8 SECONDS (9.5-12.5) 03/15/23 11:33 INR 0.98 03/15/23 11:33 Sodium 139 mEq/L (136-145) 03/16/23 04:19 Potassium 3.8 mEq/L (3.5-5.1) 03/16/23 04:19 BUN 18 mg/dL (7-18) 03/16/23 04:19 Creatinine 0.67 mg/dL (0.55-1.02) 03/16/23 04:19 Glucose 89 mg/dL (74-106) 03/16/23 04:19 Phosphorus 3.1 mg/dL (2.5-4.9) 03/15/23 17:33 Magnesium 2.0 mg/dL (1.6-2.4) 03/15/23 17:33 Total Bilirubin 0.5 mg/dL (0.2-1.0) 03/15/23 11:33 AST 13 U/L (15-37) L 03/15/23 11:33 ALT 19 U/L (13-56) 03/15/23 11:33 Alkaline Phosphatase 75 U/L (45-117) 03/15/23 11:33 Lipase 24 U/L (13-75) 03/15/23 11:33 Home Medications: Levothyroxine [Synthroid] 100 mcg PO DAILY 03/15/23 lisinopriL [Lisinopril] 1 tab PO DAILY 03/15/23 Physician Discharge Instructions: Patient presented with chest pain and dizziness. Troponins were negative x3, EKG was normal, and no acute abnormalities noted on imaging. Cardiology was consulted. Echocardiogram was normal. It was noted that she had chest tenderness on exam, suggesting musculoskeletal etiology. She did reprot recently moving and has been packing/unpacking. During her hospitalization, she was given aspirin and protonix. Orthostatic vitals were negative. She was monitored overnight, her symptoms were relieved and was deemed stable for discharge home. She did report bloody BMs. GI consulted, and patient underwent colonoscopy on 03/17 which noted louisa internal hemorrhoids and non-bleeding diverticula, no active bleed Follow-up PCP within 1 week Cardiology within 4 weeks GI in 4-6 weeks Continue home meds as previously prescribed. Recommend high fiber diet - goal to have soft daily bowel movement Followup: Eleazar Castellanos MD [ACTIVE - CAN ADMIT] - Iveht Perez PAC [Primary Care Provider] - Time spent managing pt's care (in minutes): 45
[2023-03-16] MEDS ORDERED: MAGNESIUM CITRATE 300 ML BOT PO SCH (13:00)
[2023-03-16] MEDS: METOCLOPRAMIDE 10 MG/2mL INJ IV SCH ×3 (13:00→21:15)
[2023-03-16] MEDS ORDERED: GOLYTELY 4000 ML PO SCH (14:00)
[2023-03-16] MEDS ORDERED: ONDANSETRON 4 MG (ODT) TAB PO PRN (15:13)
[2023-03-16] MEDS ORDERED: HYDRALAZINE HCL 20 MG/ML VIAL IV PRN (21:16)
[2023-03-17] MEDS: METOCLOPRAMIDE 10 MG/2mL INJ IV SCH (00:20)
[2023-03-17] MEDS: ACETAMINOPHEN 325 MG TABLET PO PRN ×2 (02:00→08:51)
[2023-03-17 05:31] LABS: Magnesium 2.2 mg/dL (1.6-2.4); Potassium 3.3 mEq/L (3.5-5.1)
[2023-03-17] MEDS: KCL 20 MEQ/100 mL IVPB 20 MEQ/100 ML BAG IV SCH ×2 (06:19→08:06)
[2023-03-17] MEDS ORDERED: NA CHLORIDE 0.9% 500 ML ONE (06:23)
[2023-03-17] MEDS: ASPIRIN 81 MG CHEWABLE TABLET PO SCH (08:07)
[2023-03-17] MEDS: PANTOPRAZOLE 40 MG INJ IVP SCH (08:07)
[2023-03-17] MEDS ORDERED: lisinopriL 20 MG TAB PO SCH (09:00)
[2023-03-17] MEDS ORDERED: LEVOTHYROXINE SOD 0.1 MG TAB PO SCH (09:00)
--- NOTE | 2023-03-17 10:19 | P.PN ---
Date of Service: 03/17/23 Subjective: no reports of chest pain/tightness today appears uncomfortable and tired no nausea / vomiting this morning ROS: 10 point ROS as noted above, otherwise negative Physical Exam: GEN: Alert, oriented, NAD HEENT: Normal conjunctiva, sclera anicteric CV: Regular rate and rhythm, no edema Pulm: Nonlabored respirations on room air ABD: Soft, nontender, nondistended MSK: mild tenderness/soreness on palpation of left chest Neuro: Normal speech, normal affect vitals reviewed Problem List: Chest pain r/o ACS Dizziness lwoer GI Bleed Hypertension Hypothyroidism Chest pain r/o ACS Dizziness trend troponins - currently negative tenderness/soreness with palpation of left chest wall; reports recently moved in last month, unpacking items this week monitor on telemetry cardiology consulted echo pending Carotid doppler negative orthostatic vitals negative pain medication as needed GI Bleed Patient reports intermittent rectal bleeding H&H stable GI consulted NPO for colonoscopy 03/17 Continue protonix Hypertension - Continue home medications and hydralazine as needed. Hypothyroidism - Continue Synthroid VTE: SCD Code: Full Dispo: Home 1-2 days
--- NOTE | 2023-03-17 10:30 | ECHO ---
HEIGHT: 5 ft 4 in WEIGHT: 150 lb 0 oz DATE OF STUDY: 03/16/[address]: Yudelka Wang 2-DIMENSIONAL: YES M.MODE: YES DOPPLER: YES COLOR FLOW: YES TDS: NO PORTABLE: YES DEFINITY: NO BUBBLE STUDY: NO DIAGNOSIS: CHEST PAIN CARDIAC HISTORY: CATHERIZATION: NO SURGERY: NO PROSTHETIC VALVE: NO PACEMAKER: NO MEASUREMENTS (cm) DIASTOLIC (NORMALS) SYSTOLIC (NORMALS) IVSd 0.9 (0.6-1.2) LA Diam 3.0 (1.9-4.0) LVEF 86% LVIDd 4.9 (3.5-5.7) LVIDs 2.2 (2.0-3.5) %FS 55% LVPWd 1.1 (0.6-1.2) Ao Diam 2.7 (2.0-3.7) 2 DIMENSIONAL ASSESSMENT: RIGHT ATRIUM: NORMAL LEFT ATRIUM: NORMAL RIGHT VENTRICLE: NORMAL LEFT VENTRICLE: NORMAL TRICUSPID VALVE: NORMAL MITRAL VALVE: MITRAL ANNULAR CALCIFICATION PULMONIC VALVE: NORMAL AORTIC VALVE: NORMAL PERICARDIAL EFFUSION: NONE AORTIC ROOT: NORMAL LEFT VENTRICULAR WALL MOTION: NORMAL DOPPLER/COLOR FLOW: NORMAL COMMENTS: 1. MITRAL ANNULAR CALCIFICATION. 2. NORMAL LEFT VENTRICULAR SIZE AND FUNCTION. 3. NO WALL MOTION ABNORMALITY. 4. NO EFFUSION. TECHNOLOGIST: Joao DAVIS
[2023-03-17] MEDS ORDERED: Ringers Lactate 1,000 ML IV ONE (10:33)
[2023-03-17] MEDS ORDERED: LIDOCAINE 1% MPF 5 ML VIAL ONE (11:51)
[2023-03-17] MEDS ORDERED: propofoL 200 MG/20 ML VIAL IV ONE (11:51)
[2023-03-17 12:41] VITALS: TEMP 98.4
--- NOTE | 2023-03-17 12:50 | CON ---
Date of Consultation: 03/16/[address] Ca on 03/15/2023. Reason For Consultation: Chest pain, dizziness, and GI bleed. History Of Present Illness: Ms. Pollack is 77. She is a patient of Dr. Salinas. Has had a history of Crohn disease, hypertension, hypothyroidism. Came in with bright red blood per rectum, dizziness, atypical chest pain midepigastric, nonexertional. No nausea, vomiting, diaphoresis, PND, orthopnea, pedal edema, palpitation, or syncope. Negative chest x-ray, negative venous Doppler, negative carot id. BNP 669. Troponin is negative. EKG is negative. Asymptomatic now. Colonoscopy is planned by Dr. Alberts on 03/17/2023. Echocardiogram is pending. Past Medical History: Includes hypertension, thyroid, and Crohn. Allergies: NONE. Medications: Listed by Dr. Ca. Review of Systems: Negative. Social History: Negative. Family History: Negative. Physical Examination: Vital Signs: Stable, afebrile. HEENT: Negative. Neck: Supple with no bruit. Chest: Clear. Cardiac: Normal. Abdomen: Benign. Extremities: Revealed no clubbing, cyanosis, or edema. Diagnostic Data: As stated earlier. Impression And Plan: Atypical chest pain. Echocardiogram is pending. She will follow up with Dr. Isabel luna after that. Colonoscopy is pending for tomorrow by Dr. Alberts. We will see what that shows kaye ponce making further decisions regarding her discharge. Case was discussed with Dr. Ca. MISHA/MODL Voice ID: [id number] Report ID: [id number]
[2023-03-17 12:52] VITALS: BP 128/74; O2SAT 99
[2023-03-18] MEDS ORDERED: LEVOTHYROXINE SOD 0.1 MG TAB PO SCH (06:30)
== END 2023-03-17 15:21 | disposition home or self-care (01) | DRG 313 ==
LOC: ER 10:04 → ERHOLD 14:22 → 2ND 17:22 → OBSVTOIN 03-17 12:35
PROVIDERS: ADMIT Internal Medicine; ATTEND Hospitalist
PROC: 0DJD8ZZ Inspection of Lower Intestinal Tract, Via Natural or Artificial Opening Endoscopic (ICD-10-PCS; 2023-03-17)
PROC: 0DJ08ZZ Inspection of Upper Intestinal Tract, Via Natural or Artificial Opening Endoscopic (ICD-10-PCS; principal; 2023-03-17 10:45)
DX: R07.89 Other chest pain (principal); K64.8 Other hemorrhoids; E03.9 Hypothyroidism, unspecified; I10 Essential (primary) hypertension; K57.30 Diverticulosis of large intestine without perforation or abscess without bleeding; Z79.890 Hormone replacement therapy; Z79.899 Other long term (current) drug therapy; Z90.710 Acquired absence of both cervix and uterus
CPT/HCPCS: 36415; 70450; 71045; 80048; 80076; 81001; 83690; 83735; 83880; 84100; 84439; 84443; 84484; 85025; 85610; 86850; 86900; 86901; 93005; 93306; 93880; 93970; 96361; 96374; 96375; 99285; C9113; G0378; J0360; J0696; J1650; J2001; J2405; J2704; J2765; J3480; J7030; J7040; J7120; Q0162

== ENCOUNTER 2023-10-26 16:50 | Inpatient (IN) | payer OTHER ==
[2023-10-26 17:41] LABS: Absolute Lymphocytes (CBC) 1.1 K/uL (0.7-4.9); Hematocrit 39.9 % (36.0-45.0); Lymphocytes % 17.2 % (15.3-44.8); MCV 94.2 fL (80-100); MPV 6.9 fL (7.6-11.3); Platelets 214 thou/uL (152-406); RBC Red Blood Cell Count 4.24 M/uL (3.86-4.86)
[2023-10-26 17:45] LABS: Protime INR 1.06
--- NOTE | 2023-10-26 17:52 | RAD REPORT ---
EXAM DESCRIPTION: CT - Head Brain Wo Cont - 10/26/2023 5:46 pm CLINICAL HISTORY: STROKE ALERT Headache, drowsiness, CVA symptomology COMPARISON: Head Brain Wo Cont dated 03/15/2023 TECHNIQUE: All CT scans are performed using dose optimization technique as appropriate and may inclu de automated exposure control or mA/KV adjustment according to patient size. FINDINGS: No intracranial hemorrhage, hydrocephalus or extra-axial fluid collection.Mild brain atrop hy noted.No areas of brain edema or evidence of midline shift. Left vertebral atherosclerosis. The paranasal sinuses and mastoids are clear. The calvarium is intact. IMPRESSION: No acute intracranial abnormality.
[2023-10-26 17:54] LABS: Calcium Oxalate Crystals- Ur Few /HPF (None Seen); Specific Gravity 1.028 (1.005-1.030); Urine Bacteria 20-50 /HPF (<20); Urine Bilirubin NEGATIVE (Negative); Urine Blood 1+ (Negative); Urine Clarity Extremely Turbid (Clear); Urine Color Yellow (Yellow); Urine Glucose NEGATIVE (Negative); Urine Mucus 2+ /HPF (None Seen); Urine Protein TRACE (Negative); Urine RBC <5 /HPF (None Seen); Urine Urobilinogen Normal (Normal); Urine pH 5.5 (5.0-7.0)
--- NOTE | 2023-10-26 17:54 | RAD REPORT ---
EXAM DESCRIPTION: CT - Head angio - 10/26/2023 5:44 pm CLINICAL HISTORY: l sided weakness Headache, drowsiness, CVA symptomology COMPARISON: Head Brain Wo Cont dated 10/26/2023; Head Brain Wo Cont dated 03/15/2023 TECHNIQUE: CT angiography of the head was performed with MIPs. All CT scans are performed using dose optimization technique as appropriate and may include automated exposure control or mA/KV adjustment according to patient size. FINDINGS: No evidence of large vessel occlusion. No evidence of aneurysm is detected. No flow-limiti ng stenosis or vascular malformation identified. Antegrade flow is seen in the vertebral arteries. The vertebral arteries are codominant. The visualized dural venous sinuses are patent. IMPRESSION: No significant flow abnormality is detected.
--- NOTE | 2023-10-26 17:59 | RAD REPORT ---
EXAM DESCRIPTION: RAD - Chest Single View - 10/26/2023 5:51 pm CLINICAL HISTORY: weakness Chest pain. COMPARISON: <Comparisons> FINDINGS: Portable technique limits examination quality. The lungs are grossly clear. The heart is upper limit of normal in size. No displaced fractures. IMPRESSION: No acute intrathoracic process suspected.
--- NOTE | 2023-10-26 17:59 | RAD REPORT ---
EXAM DESCRIPTION: CT - Neck Angio - 10/26/2023 5:45 pm CLINICAL HISTORY: l sided weakness Headache, drowsiness, CVA symptomology COMPARISON: No comparisons TECHNIQUE: CT angiography of the neck vessels was performed with MIPs. All CT scans are performed using dose optimization technique as appropriate and may include automated exposure control or mA/KV adjustment according to patient size. FINDINGS: A left aortic arch is identified with normal three vessel configuration of the great vesse ls. No significant flow abnormality is seen of the common carotid bilaterally. No significant stenosis is identified involving the cervical segments of both internal carotid arteri es. There is mild hard plaque involving both carotid bulbs, slightly greater on the left. Normal flow is seen within both vertebral arteries. IMPRESSION: No significant flow abnormality of the neck vessels is identified. Mild plaquing in both carotid bulbs, slightly greater on the left. NASCET criteria used. Mild 0-49% stenosis Moderate 50-69% stenosis Severe 70-99% stenosis
[2023-10-26 18:02] LABS: Albumin 3.3 g/dL (3.4-5.0); Bilirubin Direct 0.2 mg/dL (0-0.2); Bilirubin Indirect, Calculated 0.4 mg/dL (0.2-0.8); Bilirubin Total 0.6 mg/dL (0.2-1.0); Magnesium 2.1 mg/dL (1.6-2.4); Potassium 3.4 mEq/L (3.5-5.1); Protein, Total 6.8 g/dL (6.4-8.2); Thyroid Stimulating Hormone 0.196 uIU/mL (0.358-3.740); Troponin High Sensitivity 10.3 pg/mL (<58.9)
[2023-10-26] MEDS ORDERED: ASPIRIN 81 MG CHEWABLE TABLET ONE (18:26)
--- NOTE | 2023-10-26 18:26 | EDPHYS ---
Physician Documentation [facility] Name: Rosanna Pollack Age: 77 yrs Sex: Female : 1945 Arrival Date: 10/26/2023 Time: 16:50 Bed 17 Private MD: ED Physician Tod Christy HPI: 10/26 17:35 This 77 yrs old Female presents to ER via Wheelchair with complaints of Weakness, rt Urinary Problem, Arm Pain, Chest discomfort. 17:35 Patient presents to the ED with multiple complaints. She has been feeling weak with rt possible urinary tract symptoms about 3 weeks. She states that over the past several days, she has had a weakness and numbness on her left side. Triage note states that she reported a chest discomfort as well. Was of her primary care's office for further eval. Denies other acute complaints, symptoms are moderate in severity, no other aggravating relieving factors.. Historical: - Allergies: 17:02 No Known Allergies; nj1 - PMHx: 17:02 colon sx; Hypertensive disorder; nj1 - PSHx: 17:02 hysterectomy; Thyroidectomy; nj1 - Immunization history:: Client reports receiving the 2nd dose of the Covid vaccine. - Social history:: Smoking status: Patient denies any tobacco usage or history of. ROS: 17:35 Constitutional: Negative for fever, chills, and weight loss, Respiratory: Negative for rt shortness of breath, cough, wheezing, and pleuritic chest pain, Abdomen/GI: Negative for abdominal pain, nausea, vomiting, diarrhea, and constipation, MS/Extremity: Negative for injury and deformity, Skin: Negative for injury, rash, and discoloration, Psych: Negative for depression, anxiety, suicide ideation, homicidal ideation, and hallucinations, 17:35 Cardiovascular: Positive for chest pain, Negative for edema, 17:35 Neuro: Positive for numbness, weakness, Exam: 17:35 Constitutional: This is a well developed, well nourished patient who is awake, alert, rt and in no acute distress. Head/Face: Normocephalic, atraumatic. Chest/axilla: Normal chest wall appearance and motion. Nontender with no deformity. No lesions are appreciated. Cardiovascular: Regular rate and rhythm with a normal S1 and S2. No gallops, murmurs, or rubs. Normal PMI, no JVD. No pulse deficits. Respiratory: Lungs have equal breath sounds bilaterally, clear to auscultation and percussion. No rales, rhonchi or wheezes noted. No increased work of breathing, no retractions or nasal flaring. Abdomen/GI: Soft, non-tender, with normal bowel sounds. No distension or tympany. No guarding or rebound. No evidence of tenderness throughout. Skin: Warm, dry with normal turgor. Normal color with no rashes, no lesions, and no evidence of cellulitis. MS/ Extremity: Pulses equal, no cyanosis. Neurovascular intact. Full, normal range of motion. Psych: Awake, alert, with orientation to person, place and time. Behavior, mood, and affect are within normal limits. 17:35 ECG was reviewed by the Attending Physician. 17:35 Neuro: Speech normal, cranial nerves II through XII intact, slight drift on left upper and left lower extremity, sensation intact, Vital Signs: 16:59 BP 157 / 83; Pulse 62; Resp 16; Temp 98.2(O); Pulse Ox 96% ; Weight 73.94 kg; Height 5 nj1 ft. 4 in. ; 17:00 BP 173 / 85; Pulse 71; Resp 18; Pulse Ox 100% on R/A; ld1 18:55 BP 171 / 78; Pulse 66; Resp 18; Pulse Ox 98% on R/A; ld1 16:59 Body Mass Index 27.98 (73.94 kg, 162.56 cm) nj1 NIH Stroke Scale Scores: 17:00 NIHSS Score: 0 ld1 MDM: 17:10 Patient medically screened. rt 18:26 Data reviewed: vital signs, nurses notes. rt 18:26 Consideration of Admission/Observation Patient was admitted/placed on observation. rt Management of patient was discussed with the following: Hospitalist: Agrees to admit. I considered the following discharge prescriptions or medication management in the emergency department Medications were administered in the Emergency Department. See MAR. Independent interpretation of the following test(s) in the Emergency Department CT Scan: My interpretation is No hemorrhage seen on interpretation of CT scan images. Counseling: I had a detailed discussion with the patient and/or guardian regarding the historical points, exam findings, and any diagnostic results supporting the discharge/admit diagnosis, lab results, radiology results, the need for further work-up and treatment in the hospital. Response to treatment: There is no appreciated change of the patient's symptoms at this time. 18:27 ED course: Symptoms have been greater than 24 hours, is outside of the window for tPA rt or endovascular retrieval. 10/26 17:17 Order name: Basic Metabolic Panel; Complete Time: 18:03 rt 10/26 17:17 Order name: CBC with Diff; Complete Time: 18:03 rt 10/26 17:17 Order name: Hepatic Function; Complete Time: 18:03 rt 10/26 17:17 Order name: High Sensitivity Troponin; Complete Time: 18:03 rt 10/26 17:17 Order name: Magnesium; Complete Time: 18:03 rt 10/26 17:17 Order name: Protime (+inr); Complete Time: 18:03 rt 10/26 17:17 Order name: Ptt, Activated; Complete Time: 18:03 rt 10/26 17:17 Order name: UAM; Complete Time: 18:03 rt 10/26 17:18 Order name: TSH; Complete Time: 18:03 rt 10/26 18:38 Order name: Urinalysis w/ reflexes EDMS 10/26 18:38 Order name: CBC with Automated Diff EDMS 10/26 18:38 Order name: CBC with Automated Diff EDMS 10/26 18:38 Order name: Comprehensive Metabolic Panel EDMS 10/26 18:38 Order name: Comprehensive Metabolic Panel EDMS 10/26 18:38 Order name: Troponin High Sensitivity EDMS 10/26 18:38 Order name: Troponin High Sensitivity EDMS 10/26 18:38 Order name: Troponin High Sensitivity EDMS 10/26 18:38 Order name: Troponin High Sensitivity EDMS 10/26 17:17 Order name: CT Head Angio; Complete Time: 18:03 rt 10/26 17:17 Order name: CT Neck Angio; Complete Time: 18:03 rt 10/26 17:17 Order name: Stroke CXR 1 View; Complete Time: 18:03 rt 10/26 17:44 Order name: Head Brain Wo Cont; Complete Time: 18:03 EDMS 10/26 17:17 Order name: EKG; Complete Time: 17:18 rt 10/26 17:17 Order name: Accucheck; Complete Time: 17:26 rt 10/26 17:17 Order name: Cardiac monitoring; Complete Time: 17:18 rt 10/26 17:17 Order name: EKG - Nurse/Tech; Complete Time: 17:38 rt 10/26 17:17 Order name: IV Saline Lock; Complete Time: 17:26 rt 10/26 17:17 Order name: Labs collected and sent; Complete Time: 17:26 rt 10/26 17:17 Order name: NPO; Complete Time: 17:18 rt 10/26 17:17 Order name: O2 Per Protocol; Complete Time: 17:18 rt 10/26 17:17 Order name: O2 Sat Monitoring; Complete Time: 17:18 rt 10/26 17:17 Order name: Stroke Swallow Screen; Complete Time: 17:18 rt EC:35 Rate is 71 beats/min. Rhythm is irregularly irregular, A fib with Nonspecific ST-T wave rt changes. QRS [place] is Normal. QRS interval is normal. QT interval is normal. No Q waves. Interpreted by me. Administered Medications: 18:35 Drug: Rocephin - Rocephin (cefTRIAXone) IVPB 2 grams IVPB once over 30 mins; (mix in ld1 100 mL NS) Route: IVPB; Infused Over: 30 mins; Site: right antecubital; 18:35 Drug: Aspirin PO 325 mg PO once Route: PO; ld1 Disposition Summary: 10/26/23 18:26 Hospitalization Ordered Notes: Hospitalization Status: Observation rt Provider: Ruben Saini rt [facility] rt Condition: Stable rt Problem: new rt Symptoms: are unchanged rt Bed/Room Type: Standard rt Room Assignment: (10/26/23 18:49) bd Diagnosis - Left-sided weakness rt - UTI rt Forms: - Medication Reconciliation Form rt - SBAR form rt - Leadership Thank You Letter rt NIH Stroke Scale - NIH Stroke Score Date: 10/26/2023 Time: 17:00 Total Score = 0 10. Dysarthria (speech clarity - read or repeat words) - 0(Normal) 11. Extinction and Inattention (visual/tactile/auditory/spatial/personal) - 0(No abnormality) 1a. Level of Consciousness (LOC) - 0(Alert) 1b. Level of Consciousness (LOC) (Month \T\ Age) - 0(Both) 1c. LOC Commands (Open \T\ Closes Eyes/Nurses Aide) - 0(Both) 2. Best Gaze (Lateral Gaze Paresis) - 0(Normal) 3. Visual Field Loss - 0(No visual loss) 4. Facial Palsy - 0(Normal) 5a. Left Arm: Motor (10-second hold) - 0(No drift) 5b. Right Arm: Motor (10-second hold) - 0(No drift) 6a. Left Leg: Motor (5-second hold - always test supine) - 0(No drift) 6b. Right Leg: Motor (5-second hold - always test supine) - 0(No drift) 7. Limb Ataxia (finger/nose \T\ heel/choi - test with eyes open) - 0(Absent) 8. Sensory Loss (pinprick arms/legs/face) - 0(Normal) 9. Best Language: Aphasia (description/naming/reading) - 0(No aphasia) Initials: ld1 Signatures: Dispatcher [employer] EDMS Shelby Gracia Lauren, RN RN ld1 Tod Christy MD MD rt Mague Lalmas RN RN nj1 Corrections: (The following items were deleted from the chart) 17:44 17:18 CT-STROKE BRAIN W/O CONTRAST+CT.RAD.BRZ ordered. EDMS EDMS 18:49 18:26 rt bd
--- NOTE | 2023-10-26 18:26 | ER ---
Nurse's Notes [facility] Name: Rosanna Pollack Age: 77 yrs Sex: Female : 1945 Arrival Date: 10/26/2023 Time: 16:50 Bed 17 Private MD: Diagnosis: Left-sided weakness;UTI Presentation: 10/26 16:59 Chief complaint: Patient states: Dr sent me over here, seen at her PCP because "i nj1 thought i had a UTI". Sick for about 3 weeks, weak, PCP concerned she may have had a stroke because left arm "feels funny" or some kind of infection, maybe sepsis. Unsure of when all of it start it. Coronavirus screen: Vaccine status: Patient reports receiving the 2nd dose of the covid vaccine. Ebola Screen: Patient denies travel to an Ebola-affected area in the 21 days before illness onset. Initial Sepsis Screen: Does the patient meet any 2 criteria? No. Patient's initial sepsis screen is negative. Does the patient have a suspected source of infection? No. Patient's initial sepsis screen is negative. Risk Assessment: Do you want to hurt yourself or someone else? Patient reports no desire to harm self or others. Onset of symptoms was September 2023. 16:59 Method Of Arrival: Wheelchair nj 16:59 Acuity: ALEXANDRU 3 nj1 Historical: - Allergies: 17:02 No Known Allergies; nj1 - PMHx: 17:02 colon sx; Hypertensive disorder; nj1 - PSHx: 17:02 hysterectomy; Thyroidectomy; nj1 - Immunization history:: Client reports receiving the 2nd dose of the Covid vaccine. - Social history:: Smoking status: Patient denies any tobacco usage or history of. Screenin:00 [facility] ED Fall Risk Assessment (Adult) History of falling in the last 3 months, ld1 including since admission No falls in past 3 months (0 pts). Abuse screen: Denies threats or abuse. Denies injuries from another. Nutritional screening: No deficits noted. Tuberculosis screening: No symptoms or risk factors identified. Assessment: 17:00 VAN Scoring: Arm Drift: Patients demonstrates NO arm weakness. Patient is VAN Negative. ld1 [place] Swallow Protocol 3 oz Water Swallow Challenge: Pt able to drink all water without stopping, coughing, choking or throat clearing: Yes. TNKase (Tenecteplase) Screening: Contraindications: Patient reports onset of signs and symptoms of stroke greater than 6 hours ago:. General: Appears in no apparent distress. comfortable, Behavior is calm, cooperative, appropriate for age. Pain: Denies pain. Neuro: Level of Consciousness is awake, alert, obeys commands, Oriented to person, place, time, situation, Appropriate for age. Cardiovascular: Capillary refill < 3 seconds Patient's skin is warm and dry. Rhythm is sinus rhythm. Respiratory: Airway is patent Respiratory effort is even, unlabored. GI: Abdomen is round non-distended. : Reports burning with urination. EENT: No signs and/or symptoms were reported regarding the EENT system. Derm: No signs and/or symptoms reported regarding the dermatologic system. Musculoskeletal: No signs and/or symptoms reported regarding the musculoskeletal system. 18:55 Reassessment: No changes from previously documented assessment. Patient and/or family ld1 updated on plan of care and expected duration. Pain level reassessed. Patient is alert, oriented x 3, equal unlabored respirations, skin warm/dry/pink. Patient denies pain at this time. Vital Signs: 16:59 BP 157 / 83; Pulse 62; Resp 16; Temp 98.2(O); Pulse Ox 96% ; Weight 73.94 kg; Height 5 nj1 ft. 4 in. ; 17:00 BP 173 / 85; Pulse 71; Resp 18; Pulse Ox 100% on R/A; ld1 18:55 BP 171 / 78; Pulse 66; Resp 18; Pulse Ox 98% on R/A; ld1 16:59 Body Mass Index 27.98 (73.94 kg, 162.56 cm) nj1 NIH Stroke Scale Scores: 17:00 NIHSS Score: 0 ld1 ED Course: 16:54 Patient arrived in ED. mr 17:00 Patient has correct armband on for positive identification. Placed in gown. Bed in low ld1 position. Call light in reach. Side rails up X2. 17:00 alarm security or surveillance monitor on. Pulse ox on. NIBP on. ld1 17:00 Door closed. Noise minimized. Warm blanket given. ld1 17:00 No provider procedures requiring assistance completed. ld1 17:02 Triage completed. nj1 17:03 Arm band placed on right wrist. nj1 17:07 Tod Christy MD is Attending Physician. rt 17:18 Belia Harp, RN is Primary Nurse. ld1 17:26 [facility] Sent. ld1 17:38 Inserted saline lock: 20 gauge in right antecubital area, using aseptic technique. ld1 Blood collected. 17:46 CT Head Angio In Process Unspecified. EDMS 17:47 CT Neck Angio In Process Unspecified. EDMS 17:47 Head Brain Wo Cont In Process Unspecified. EDMS 17:53 Stroke CXR 1 View In Process Unspecified. EDMS 18:25 Ruben Saini MD is Hospitalizing Provider. rt Administered Medications: 18:35 Drug: Rocephin - Rocephin (cefTRIAXone) IVPB 2 grams IVPB once over 30 mins; (mix in ld1 100 mL NS) Route: IVPB; Infused Over: 30 mins; Site: right antecubital; 18:35 Drug: Aspirin PO 325 mg PO once Route: PO; ld1 Outcome: 18:26 Decision to Hospitalize by Provider. rt 19:31 Patient left the ED. ap3 NIH Stroke Scale - NIH Stroke Score Date: 10/26/2023 Time: 17:00 Total Score = 0 10. Dysarthria (speech clarity - read or repeat words) - 0(Normal) 11. Extinction and Inattention (visual/tactile/auditory/spatial/personal) - 0(No abnormality) 1a. Level of Consciousness (LOC) - 0(Alert) 1b. Level of Consciousness (LOC) (Month \\T\\ Age) - 0(Both) 1c. LOC Commands (Open \\T\\ Closes Eyes/Aviculturist) - 0(Both) 2. Best Gaze (Lateral Gaze Paresis) - 0(Normal) 3. Visual Field Loss - 0(No visual loss) 4. Facial Palsy - 0(Normal) 5a. Left Arm: Motor (10-second hold) - 0(No drift) 5b. Right Arm: Motor (10-second hold) - 0(No drift) 6a. Left Leg: Motor (5-second hold - always test supine) - 0(No drift) 6b. Right Leg: Motor (5-second hold - always test supine) - 0(No drift) 7. Limb Ataxia (finger/nose \\T\\ heel/choi - test with eyes open) - 0(Absent) 8. Sensory Loss (pinprick arms/legs/face) - 0(Normal) 9. Best Language: Aphasia (description/naming/reading) - 0(No aphasia) Initials: ld1 Signatures: Dispatcher [employer] Sugar Gerard, Reg Reg mr ChacortaLilia, RN RN ap3 Belia Harp RN RN ld1 Tod Christy MD MD rt Mague Llamas RN RN nj1 Corrections: (The following items were deleted from the chart) 17:19 16:59 Chief complaint: Patient states: Dr sent me over here, seen at her PCP nj1 because i thought i had a UTI. Sick for about 3 weeks, weak, PCP concerned she may have had a stroke because left arm "feels funny" or some kind of infection, maybe sepsis. Unsure of when all of it start it. nj1
[2023-10-26] MEDS ORDERED: NA CHLORIDE 0.9% 100 ML ONE (18:27)
[2023-10-26] MEDS ORDERED: CEFTRIAXONE 2000 MG/VIAL ONE (18:27)
--- NOTE | 2023-10-26 18:31 | P.HP ---
Certification for Inpatient Patient admitted to: Observation With expected LOS: <2 Midnights Practitioner: I am a practitioner with admitting privileges, knowledge of patient current condition, hospital course, and medical plan of care. Services: Services provided to patient in accordance with Admission requirements found in Title 42 Section 412.3 of the Code of Federal Regulations Patient History Date of Service: 10/26/23 Reason for admission: Generalized weakness History of Present Illness: 77 yrs old Female with past medical history of hypertension, hypothyroidism, came to ER with generalized weakness which has been going on for the last 2 -3 weeks . Patient is a poor historian hence most of the history is obtained from the chart review and also talking to the ER physician and with the family at the bedside. She has been progressively getting weaker and weaker. Patient had difficulty in ambulation. Had fever and chills associated with the dysuria. Also complains of abdominal discomfort. Denies any nausea or vomiting. No sick contacts. She also complains of chest discomfort on and off. Patient was seen by the PCP and was sent over to the ER for further management to rule out CVA. Patient was assessed in the ER and had CT and CTA which were negative for any acute stroke. Patient is being admitted for further management. She was also noted to be having a UTI . Allergies No Known Allergies Allergy (Verified 07/13/23 14:46) Home medications list reviewed: Yes Home Medications: Levothyroxine [Synthroid] 100 mcg PO DAILY 03/15/23 lisinopriL [Lisinopril] 1 tab PO DAILY 03/15/23 Famotidine 20 mg PO DAILY 07/13/23 Loperamide [Imodium] 2 mg PO Q6HP PRN 07/13/23 Pantoprazole [Protonix Tab] 40 mg PO DAILY 07/13/23 - Past Medical/Surgical History Diabetic: No Past Medical History: Reviewed- Non-Contributory -: HTN -: Hypothyriodism Past Surgical History: Reviewed- Non-Contributory -: Hysterectomy -: Thyroidectomy -: Colon Resection - Family History Family History: Reviewed- Non-Contributory - Social History Smoking Status: Never smoker Alcohol use: Yes CD- Drugs: No Caffeine use: No Review of Systems 10-point ROS is otherwise unremarkable General: Fever, Chills, Weakness, Malaise Eyes: Unremarkable ENT: Unremarkable Respiratory: Unremarkable Cardiovascular: Chest Pain, Unremarkable Gastrointestinal: Abdominal Pain Genitourinary: Dysuria, Frequency Musculoskeletal: Other (Generalized weakness , Fatigue , Difficulty in ambulatio n) Integumentary: Unremarkable Neurological: Unremarkable Physical Examination - Vital Signs Temperature: 98.8 F Blood Pressure: 172/98 Pulse: 70 Respirations: 18 Pulse Ox (%): 86 - Physical Exam General: Alert, Oriented x3, Mild distress HEENT: Atraumatic, Normocephalic Neck: Supple, No Thyromegaly Respiratory: Clear to auscultation bilaterally, Normal air movement Cardiovascular: No edema, Regular rate/rhythm, Normal S1 S2 Capillary refill: <2 Seconds Gastrointestinal: Soft and benign, W/out hepatosplenomegaly, No ascites, No guarding Musculoskeletal: No clubbing, No swelling Integumentary: No rashes, No tenderness/swelling Neurological: Other (Alert, Awake, generlised weakness ,) Lymphatics: No axilla or inguinal lymphadenopathy - Studies Laboratory Data (last 24 hrs) 10/26/23 10/26/23 10/26/23 17:24 17:24 17:24 WBC 6.10 Hgb 13.9 Hct 39.9 Plt Count 214 PT 11.6 INR 1.06 APTT 31.5 Sodium 141 Potassium 3.4 L BUN 12 Creatinine 0.74 Glucose 83 Magnesium 2.1 Total Bilirubin 0.6 AST 11 L ALT 16 Alkaline Phosphatase 78 Assessment and Plan - Problems (Diagnosis) (1) UTI (urinary tract infection) Current Visit: Yes Status: Acute Plan: Currently on IV antibiotic Will obtain cultures Will change antibiotic as per sensitivity Supportive management for fever Pain control (2) Generalized weakness Current Visit: Yes Status: Acute Plan: Patient had a stroke workup CT CTA were negative for any acute changes Continue aspirin and statin Will monitor closely on telemetry Neuro vital signs monitor (3) Hypertension, accelerated Current Visit: Yes Status: Acute Plan: Hydralazine as needed Antihypertensives continued and titrated Monitor closely (4) Hypokalemia Current Visit: Yes Status: Acute Plan: Will replace potassium Will monitor electrolytes and replace accordingly (5) Chest discomfort Current Visit: Yes Status: Acute Plan: Chest discomfort To rule out/ACS Will trend cardiac enzymes Aspirin and statin Will get an echocardiogram Patient has sinus arrhythmia Monitor closely under telemetry Will get a cardiology consult if cardiac enzymes were elevated Plan to discharge in: 48 Hours - Advance Directives Does patient have a Living Will: No Does patient have a Durable POA for Healthcare: No - Code Status/Comfort Care Code Status: Full Code Time Spent Managing Pts Care (In Minutes): 48
[2023-10-26 20:22] VITALS: O2SAT 98; BMI 27.9
[2023-10-26] MEDS: ACETAMINOPHEN 500 MG TAB PO PRN (20:36)
[2023-10-26] MEDS: ENOXAPARIN 40 MG/0.4 ML SQ SCH (20:37)
[2023-10-26] MEDS: NA CHLORIDE 0.9% 1,000 ML IV SCH (20:37)
[2023-10-26] MEDS: ATORVASTATIN 40 MG TAB PO SCH (22:06)
[2023-10-27] MEDS: PIPER TAZO 3.375 GM in NA CHLORIDE 0.9% 100 ML IV SCH ×3 (00:24→17:28)
[2023-10-27 03:57] LABS: Absolute Lymphocytes (CBC) 1.2 K/uL (0.7-4.9); Hematocrit 35.4 % (36.0-45.0); Lymphocytes % 28.7 % (15.3-44.8); MCV 94.8 fL (80-100); MPV 7.4 fL (7.6-11.3); Platelets 176 thou/uL (152-406); RBC Red Blood Cell Count 3.73 M/uL (3.86-4.86)
[2023-10-27 04:07] LABS: Albumin 2.7 g/dL (3.4-5.0); Bilirubin Total 0.5 mg/dL (0.2-1.0); Potassium 3.2 mEq/L (3.5-5.1); Protein, Total 5.7 g/dL (6.4-8.2)
[2023-10-27] MEDS: LEVOTHYROXINE SOD 0.1 MG TAB PO SCH (06:36)
[2023-10-27] MEDS: ACETAMINOPHEN 500 MG TAB PO PRN ×3 (06:39→20:30)
[2023-10-27] MEDS: HYDRALAZINE HCL 25 MG TABLET PO SCH ×3 (08:51→20:18)
[2023-10-27] MEDS: POTASSIUM CL SA 10 MEQ TAB PO SCH ×2 (08:51→10:31)
[2023-10-27] MEDS: ASPIRIN EC 81 MG TAB PO SCH (08:52)
[2023-10-27] MEDS: lisinopriL 20 MG TAB PO SCH (08:52)
[2023-10-27] MEDS: PANTOPRAZOLE 40MG TABLET PO SCH (08:52)
[2023-10-27] MEDS: ENOXAPARIN 40 MG/0.4 ML SQ SCH (08:53)
[2023-10-27] MEDS: NA CHLORIDE 0.9% 1,000 ML IV SCH ×2 (08:55→23:45)
[2023-10-27] MEDS ORDERED: INFLUENZA VACCINE (for 6+ mo) 0.5 ML DOSE IMVAC ONE (09:00)
[2023-10-27] MEDS ORDERED: PNEUMOCOCCAL VACCINE 0.5 ML IMVAC ONE (09:00)
--- NOTE | 2023-10-27 09:12 | P.PN ---
Subjective Date of Service: 10/27/23 Chief Complaint: Generalized weakness Pt is resting comfortably in bed. She complains of generalized weakness. UA is positive for UTI. No other complaints. Review of Systems 10-point ROS is otherwise unremarkable General: Unremarkable Eyes: Unremarkable ENT: Unremarkable Respiratory: Unremarkable Cardiovascular: Unremarkable Gastrointestinal: Unremarkable Genitourinary: Unremarkable Musculoskeletal: Unremarkable Integumentary: Unremarkable Neurological: Unremarkable Lymphatics: Unremarkable Physical Examination - Vital Signs Temperature: 98.3 F Blood Pressure: 150/78 Pulse: 61 Respirations: 16 Pulse Ox (%): 95 - Physical Exam General: Alert, In no apparent distress, Oriented x3 HEENT: Atraumatic, Normocephalic, PERRLA Neck: Supple, 2+ carotid pulse no bruit Respiratory: Clear to auscultation bilaterally, Normal air movement Cardiovascular: No edema, Normal pulses, Regular rate/rhythm, Normal S1 S2 Capillary refill: <2 Seconds Gastrointestinal: Normal bowel sounds, Soft and benign, Non-distended Musculoskeletal: No clubbing, No swelling Integumentary: No rashes, No breakdown Neurological: Normal gait, Normal speech, Normal strength at 5/5 x4 extr, Sensation intact Lymphatics: No axilla or inguinal lymphadenopathy - Studies Laboratory Data (last 24 hrs) 10/26/23 10/26/23 10/26/23 17:24 17:24 17:24 WBC 6.10 Hgb 13.9 Hct 39.9 Plt Count 214 PT 11.6 INR 1.06 APTT 31.5 Sodium 141 Potassium 3.4 L BUN 12 Creatinine 0.74 Glucose 83 Magnesium 2.1 Total Bilirubin 0.6 AST 11 L ALT 16 Alkaline Phosphatase 78 Assessment And Plan - Plan UTI: Will continue rocephin and follow up urine cx. Generalized weakness: likely due to UTI. Will continue treatment. Will consult PT. Hypokalemia: k is 3.2. Will replete and monitor. Will check magnesium Htn: Will continue hydralazine and lisinopril with prn iv hydralazine. Chest discomfort: resolved. Will r/o ACS. Will trend troponin ( 10 -> 11.4 -> 11.9). Continue aspirin and statin. Follow up Echo. Pseudohypocalcemia: Calsium is 7.8. Albumin is 2.7. Corrected calcium is within normal limit. DVT ppx: SCD Dispo: Pending hospital course. Discharge Plan: Home Plan to discharge in: 24 Hours - Code Status/Comfort Care Code Status Assessed: Yes Code Status: Full Code
--- NOTE | 2023-10-27 12:51 | EKG ---
Test Date: 2023-10-26 Test Time: 17:31:09 Primary Teacher: Efrain AVILES MEASUREMENT RESULTS: Intervals: Rate: 61 CA: QRSD: 90 QT: 422 QTc: 424 [place]: P: CA: QRS: -30 T: 42 INTERPRETIVE STATEMENTS: Atrial fibrillation Left axis deviation Nonspecific ST and T wave abnormality, probably digitalis effect Abnormal ECG Compared to ECG 03/15/2023 11:14:28 Left-axis deviation now present ST (T wave) deviation now present Sinus bradycardia no longer present Atrial premature complex(es) no longer present Electronically Signed On 10-27-23 12:49:22 MACHINE SHOP WORKER by Lamberto Turner
--- NOTE | 2023-10-27 14:58 | RAD REPORT ---
EXAM DESCRIPTION: RAD - Abdomen 1 View (KUB) - 10/27/2023 2:46 pm CLINICAL HISTORY: Abdomen pain FINDINGS: The bowel gas pattern is unremarkable. Multiple densities overlying the region of the distal stomach presumably ingested pills. Another cons ideration pancreatic calcifications. Calcifications in the pelvis presumably phleboliths
[2023-10-27] MEDS: ATORVASTATIN 40 MG TAB PO SCH (20:18)
[2023-10-28] MEDS: PIPER TAZO 3.375 GM in NA CHLORIDE 0.9% 100 ML IV SCH ×3 (00:38→17:06)
[2023-10-28 02:47] LABS: Hematocrit 36.7 % (36.0-45.0); Lymphocytes % 17.1 % (15.3-44.8); MCV 94.5 fL (80-100); MPV 7.3 fL (7.6-11.3); Platelets 185 thou/uL (152-406); RBC Red Blood Cell Count 3.88 M/uL (3.86-4.86)
[2023-10-28 03:01] LABS: Potassium 3.9 mEq/L (3.5-5.1)
[2023-10-28] MEDS: HYDRALAZINE HCL 20 MG/ML VIAL IV PRN ×2 (03:41→12:28)
[2023-10-28] MEDS: ACETAMINOPHEN 500 MG TAB PO PRN ×3 (05:47→17:10)
[2023-10-28] MEDS: LEVOTHYROXINE SOD 0.1 MG TAB PO SCH (05:48)
[2023-10-28] MEDS: ASPIRIN EC 81 MG TAB PO SCH (08:31)
[2023-10-28] MEDS: HYDRALAZINE HCL 25 MG TABLET PO SCH ×3 (08:31→21:43)
[2023-10-28] MEDS: lisinopriL 20 MG TAB PO SCH (08:31)
[2023-10-28] MEDS: PANTOPRAZOLE 40MG TABLET PO SCH (08:32)
[2023-10-28] MEDS: ENOXAPARIN 40 MG/0.4 ML SQ SCH (08:32)
[2023-10-28] MEDS: ONDANSETRON 4 MG/2 ML VIAL IV PRN ×2 (09:43→13:43)
--- NOTE | 2023-10-28 10:49 | P.PN ---
Subjective Date of Service: 10/28/23 Chief Complaint: Generalized weakness Pt is resting comfortably in bed. She complains of generalized weakness and headache. BP is elevated. Will hold IVF. UA is positive for UTI. Will follow up Echo. No other complaints. Review of Systems 10-point ROS is otherwise unremarkable General: Weakness Eyes: Unremarkable ENT: Unremarkable Respiratory: Unremarkable Cardiovascular: Unremarkable Gastrointestinal: Abdominal Pain Genitourinary: Unremarkable Musculoskeletal: Unremarkable Integumentary: Unremarkable Neurological: Unremarkable Lymphatics: Unremarkable Physical Examination - Vital Signs Temperature: 98.7 F Blood Pressure: 167/82 Pulse: 57 Respirations: 15 Pulse Ox (%): 98 - Physical Exam General: Alert, In no apparent distress, Oriented x3 HEENT: Atraumatic, Normocephalic, PERRLA Neck: Supple, 2+ carotid pulse no bruit Respiratory: Clear to auscultation bilaterally, Normal air movement Cardiovascular: No edema, Normal pulses Capillary refill: <2 Seconds Gastrointestinal: Normal bowel sounds, Soft and benign, Non-distended, Tenderness Musculoskeletal: No clubbing, No swelling Integumentary: No rashes, No breakdown Neurological: Normal gait, Normal speech, Normal strength at 5/5 x4 extr Lymphatics: No axilla or inguinal lymphadenopathy Assessment And Plan - Plan UTI: Will continue rocephin and follow up urine cx. Generalized weakness: likely due to UTI. Will continue treatment. Will consult PT. Hypokalemia: k is 3.9 <- 3.2. Will monitor. magnesium is 2.0. Htn: Will continue hydralazine 50mg po TID and lisinopril 10mg po daily with prn iv hydralazine. Chest discomfort: resolved. Will r/o ACS. Will trend troponin ( 10 -> 11.4 -> 11.9). Continue aspirin and statin. Echo is pending. Epigastric pain: lipase is 17 ( Nml). Will continue prn pain med. Pseudohypocalcemia: Calsium is 7.8. Albumin is 2.7. Corrected calcium is within normal limit. DVT ppx: SCD Dispo: Pending hospital course.
[2023-10-28] MEDS: ACETAMIN/CAFFEINE/BUTALB TAB PO PRN ×2 (13:38→21:44)
[2023-10-28] MEDS ORDERED: ACETAMIN/CAFFEINE/BUTALB TAB PO ONE (21:33)
[2023-10-28] MEDS: ATORVASTATIN 40 MG TAB PO SCH (21:43)
[2023-10-28] MEDS: FAMOTIDINE 20 MG TAB PO SCH (21:43)
[2023-10-29] MEDS: PIPER TAZO 3.375 GM in NA CHLORIDE 0.9% 100 ML IV SCH ×3 (01:31→16:51)
[2023-10-29 02:51] LABS: Hematocrit 38.3 % (36.0-45.0); Lymphocytes % 18.5 % (15.3-44.8); MCV 93.6 fL (80-100); MPV 7.2 fL (7.6-11.3); Platelets 224 thou/uL (152-406); RBC Red Blood Cell Count 4.09 M/uL (3.86-4.86)
[2023-10-29 02:55] LABS: Potassium 3.5 mEq/L (3.5-5.1)
[2023-10-29] MEDS: LEVOTHYROXINE SOD 0.1 MG TAB PO SCH (06:32)
[2023-10-29] MEDS: ENOXAPARIN 40 MG/0.4 ML SQ SCH (09:10)
[2023-10-29] MEDS: lisinopriL 20 MG TAB PO SCH (09:11)
[2023-10-29] MEDS: FAMOTIDINE 20 MG TAB PO SCH (09:11)
[2023-10-29] MEDS: PANTOPRAZOLE 40MG TABLET PO SCH (09:11)
[2023-10-29] MEDS: ASPIRIN EC 81 MG TAB PO SCH (09:12)
[2023-10-29] MEDS: HYDRALAZINE HCL 25 MG TABLET PO SCH ×3 (09:13→20:34)
[2023-10-29] MEDS: ACETAMIN/CAFFEINE/BUTALB TAB PO PRN ×2 (09:14→18:19)
--- NOTE | 2023-10-29 15:15 | EKG ---
Test Date: 2023-10-26 Test Time: 17:33:54 Expressive Art Therapist: Efrain AVILES MEASUREMENT RESULTS: Intervals: Rate: 71 IL: QRSD: 84 QT: 418 QTc: 454 [place]: P: IL: QRS: -29 T: 38 INTERPRETIVE STATEMENTS: Atrial fibrillation Nonspecific ST and T wave abnormality, probably digitalis effect Abnormal ECG Compared to ECG 10/26/2023 17:31:09 Left-axis deviation no longer present ST (T wave) deviation still present Electronically Signed On 10-29-23 15:10:27 ASSISTANT PROJECT MANAGER by Lamberto Turner
--- NOTE | 2023-10-29 16:37 | P.PN ---
Subjective Date of Service: 10/29/23 Chief Complaint: Generalized weakness Subjective: No new changes, Improving, Doing well Alert oriented x 3 NAD Vital stable Patient denies any pain or discomfort <Marlen Casiano - Last Filed: 10/29/23 16:40> Date of Service: 10/29/23 <Sidra Donato Jayne - Last Filed: 10/29/23 17:57> Review of Systems 10-point ROS is otherwise unremarkable <Marlen Casiano - Last Filed: 10/29/23 16:40> Physical Examination - Vital Signs Temperature: 97.3 F Blood Pressure: 117/71 Pulse: 64 Respirations: 17 Pulse Ox (%): 96 - Physical Exam General: Alert, Oriented x3 HEENT: Atraumatic Neck: Supple, 2+ carotid pulse no bruit Respiratory: Clear to auscultation bilaterally, Normal air movement Cardiovascular: No edema, Normal pulses Capillary refill: <2 Seconds Gastrointestinal: Normal bowel sounds, Soft and benign Musculoskeletal: No clubbing, No swelling Integumentary: No rashes, No breakdown Neurological: Normal speech, Normal tone, Normal affect <Marlen Casiano - Last Filed: 10/29/23 16:40> Assessment And Plan - Plan (1) UTI (urinary tract infection) Current Visit: Yes Status: Acute Plan: Continue IV antibiotic Pending culture results Will change antibiotic as per sensitivity Supportive management for fever Pain control (2) Generalized weakness Current Visit: Yes Status: Acute Plan: Improving weakness Patient had a stroke workup -negative CT CTA were negative for any acute changes Continue aspirin and statin Will monitor closely on telemetry Neuro vital signs monitor (3) Hypertension, accelerated Current Visit: Yes Status: Acute Plan: Chronic improving Hydralazine as needed Antihypertensives continued and titrated Monitor closely (4) Hypokalemia Current Visit: Yes Status: Acute Plan: Improving serum potassium 3.5 Will replace potassium Will monitor electrolytes and replace accordingly (5) Chest discomfort Current Visit: Yes Status: Acute Plan: Chest discomfort To rule out/ACS Negative cardiac enzymes Continue spirin and statin Will get an echocardiogram Patient has sinus arrhythmia Monitor closely under telemetry Will get a cardiology consult if cardiac enzymes were elevated CODE STATUS full code Diet cardiac Discharge Plan: Home Plan to discharge in: 24 Hours - Code Status/Comfort Care Code Status Assessed: Yes (full code) Code Status: Full Code Physician Review: Patient Assessed, Agree with Above Assessment and Plan Critical Care: No Time Spent Managing PTS Care (In Minutes): 35 (minutes) <Marlen Casiano - Last Filed: 10/29/23 16:40> - Plan Pt seen and examined. I agree with the note by the YARD ATTENDANT. Pt reports improvement of the abd pain. Will continue iv abx for UTI and replace electrolytes. <Sidra Donato - Last Filed: 10/29/23 17:57>
[2023-10-29] MEDS ORDERED: ACETAMIN/CAFFEINE/BUTALB TAB PO ONE (16:54)
[2023-10-29] MEDS: ATORVASTATIN 40 MG TAB PO SCH (20:33)
[2023-10-30] MEDS: PIPER TAZO 3.375 GM in NA CHLORIDE 0.9% 100 ML IV SCH ×2 (01:00→09:00)
[2023-10-30] MEDS: ACETAMINOPHEN 500 MG TAB PO PRN (05:07)
[2023-10-30] MEDS: LEVOTHYROXINE SOD 0.1 MG TAB PO SCH (05:08)
[2023-10-30] MEDS ORDERED: POTASSIUM CL SA 10 MEQ TAB PO ONE (08:00)
[2023-10-30 08:26] VITALS: BP 114/65; TEMP 97.9
[2023-10-30] MEDS: ENOXAPARIN 40 MG/0.4 ML SQ SCH ×2 (09:00→09:02)
[2023-10-30] MEDS: FAMOTIDINE 20 MG TAB PO SCH (09:02)
[2023-10-30] MEDS: PANTOPRAZOLE 40MG TABLET PO SCH (09:02)
[2023-10-30] MEDS: lisinopriL 20 MG TAB PO SCH (09:02)
[2023-10-30] MEDS: HYDRALAZINE HCL 25 MG TABLET PO SCH (09:02)
[2023-10-30] MEDS: ASPIRIN EC 81 MG TAB PO SCH (09:02)
--- NOTE | 2023-10-30 11:00 | P.DS ---
Admission Date: 10/28/23 Discharge Date: 10/30/23 Disposition: ROUTINE DISCHARGE Discharge Condition: GOOD Reason for Admission: Generalized weakness Vital Signs/Physical Exam: Temp Pulse Resp BP Pulse Ox 97.9 F 72 14 114/65 92 10/30/23 08:00 10/30/23 08:00 10/30/23 08:00 10/30/23 08:00 10/30/23 08:00 General: Alert, Oriented x3 HEENT: Atraumatic Neck: Supple Respiratory: Clear to auscultation bilaterally, Normal air movement Cardiovascular: No edema, Normal pulses Gastrointestinal: Normal bowel sounds, Soft and benign Musculoskeletal: No clubbing, No swelling Integumentary: No rashes, No breakdown Neurological: Normal speech, Normal affect Laboratory Data at Discharge: WBC 5.70 thou/uL (4.3-10.9) 10/29/23 02:02 Hgb 13.4 g/dL (12.0-15.0) 10/29/23 02:02 Hct 38.3 % (36.0-45.0) 10/29/23 02:02 Plt Count 224 thou/uL (152-406) 10/29/23 02:02 PT 11.6 SECONDS (9.5-12.5) 10/26/23 17:24 INR 1.06 10/26/23 17:24 APTT 31.5 SECONDS (24.3-36.9) 10/26/23 17:24 Sodium 140 mEq/L (136-145) 10/29/23 02:02 Potassium 3.5 mEq/L (3.5-5.1) 10/29/23 02:02 BUN 9 mg/dL (7-18) 10/29/23 02:02 Creatinine 0.74 mg/dL (0.55-1.02) 10/29/23 02:02 Glucose 90 mg/dL (74-106) 10/29/23 02:02 Magnesium 2.0 mg/dL (1.6-2.4) 10/27/23 11:58 Total Bilirubin 0.5 mg/dL (0.2-1.0) 10/27/23 02:58 AST 9 U/L (15-37) L 10/27/23 02:58 ALT 12 U/L (13-56) L 10/27/23 02:58 Alkaline Phosphatase 66 U/L (45-117) 10/27/23 02:58 Lipase 17 U/L (13-75) 10/27/23 11:58 Home Medications: Levothyroxine [Synthroid*] 100 mcg PO DAILY 03/15/23 lisinopriL [Lisinopril] 1 tab PO DAILY 03/15/23 Famotidine 20 mg PO DAILY 07/13/23 Loperamide [Imodium*] 2 mg PO Q6HP PRN 07/13/23 Pantoprazole [Protonix Tab*] 40 mg PO DAILY 07/13/23 Cephalexin [Keflex] 500 mg PO TID 5 Days #15 cap 10/30/23 New Medications: Cephalexin [Keflex] 500 mg PO TID 5 Days #15 cap Physician Discharge Instructions: Ms. Urbina is a pleasant 77-year-old female patient with a past medical history significant for hypertension, hypothyroidism who was admitted to the [facility] on 10/26/2020 for urinary tract infection and generalized weakness. Patient was treated with IV antibiotics, and IV hydration. On 10/30/2023, patient was seen on morning rounds and deemed medically stable for discharge. Patient was discharged with instructions to schedule follow-up appointments with PCP. Patient was provided prescriptions for Augmentin. The patient was given the opportunity to ask questions and reported no further questions. Furthermore, all questions were answered to the best of my ability. 1. Please call and schedule a follow-up appointment with your PCP in 3-5 days - Please follow-up with your PCP for medication refills/adjustments Diet: Low sodium Activity: Ad stephanie Followup: Iveth Perez PAC [Primary Care Provider] - Time spent managing pt's care (in minutes): 55 (minutes)
--- NOTE | 2023-11-02 07:38 | ECHO ---
HEIGHT: 5 ft 4 in WEIGHT: 163 lb 0 oz DATE OF STUDY: 10/28/[address]: Sidra Donato MD 2-DIMENSIONAL: YES M.MODE: YES DOPPLER: YES COLOR FLOW: YES TDS: PORTABLE: YES DEFINITY: BUBBLE STUDY: DIAGNOSIS: CHEST PAIN CARDIAC HISTORY: CATHERIZATION: SURGERY: PROSTHETIC VALVE: PACEMAKER: MEASUREMENTS (cm) DIASTOLIC (NORMALS) SYSTOLIC (NORMALS) IVSd 1.0 (0.6-1.2) LA Diam 3.3 (1.9-4.0) LVEF 56% LVIDd 4.2 (3.5-5.7) LVIDs 3.0 (2.0-3.5) %FS 29% LVPWd 1.2 (0.6-1.2) Ao Diam 3.4 (2.0-3.7) 2 DIMENSIONAL ASSESSMENT: RIGHT ATRIUM: NORMAL LEFT ATRIUM: NORMAL RIGHT VENTRICLE: NORMAL LEFT VENTRICLE: NORMAL TRICUSPID VALVE: MILD TRICUSPID REGURGITATION MITRAL VALVE: MILD MITRAL ANNULAR CALCIFICATION WITH MILD MITRAL REGURGITATION PULMONIC VALVE: NORMAL AORTIC VALVE: MODERATE AORTIC INSUFFICIENCY PERICARDIAL EFFUSION: NONE AORTIC ROOT: NORMAL LEFT VENTRICULAR WALL MOTION: NORMAL DOPPLER/COLOR FLOW: SEE BELOW COMMENTS: 1. NORMAL LEFT VENTRICULAR EJECTION FRACTION 55-60% WITH NORMAL WALL MOTION 2. GRADE I DIASTOLIC DYSFUNCTION 3. MILD MITRAL REGURGITATION, TRICUSPID REGURGITATION 4. MODERATE AORTIC INSUFFICIENCY TECHNOLOGIST: FARHEEN SOLITARIO
== END 2023-10-30 13:03 | disposition home or self-care (01) | DRG 690 ==
LOC: ER 16:50 → ERHOLD 18:37 → 2ND 19:56 → OBSVTOIN 10-28 20:23
PROVIDERS: ADMIT Family Medicine; ATTEND Family Medicine
DX: N39.0 Urinary tract infection, site not specified (principal); G81.94 Hemiplegia, unspecified affecting left nondominant side; E83.51 Hypocalcemia; I10 Essential (primary) hypertension; E87.6 Hypokalemia; R53.1 Weakness; R10.13 Epigastric pain; R07.89 Other chest pain
CPT/HCPCS: 36415; 70450; 70496; 70498; 71045; 74018; 80048; 80053; 80076; 81001; 82565; 83690; 83735; 84443; 84484; 85025; 85610; 85730; 90471; 90732; 93005; 93306; 96374; 99285; G0378; J0360; J0696; J1650; J2405; J2543; J7030; Q2035; Q9967